=== PATIENT | female | born 1935 | race Caucasian/White ===

== ENCOUNTER 2016-12-20 18:44 | Inpatient (IN) | payer MEDICARE, MEDICAID ==
[~2016-12-20] VITALS: Ht 165.1 cm; Wt 81.6 kg
[~2016-12-20 18:44] MED LIST: CALCIUM + VITA1 EAC1 PO; CATAPRES0.1 MG ORAL; COUMADIN3 MG ORAL; CRANBERRY500 M4 PO; LISINOPRIL10 MG ORAL; MULTIVITAMINS1 EAC8 ORAL; NORVASC2.5 MG ORAL; SENNA8.6 M2 PO; TYLENOL650 MG/20. ORAL; ZANTAC150 MG ORAL
[2016-12-20] MEDS ORDERED: Cefepime 1gm vial ONE (19:45)
[2016-12-20] MEDS ORDERED: Cefepime HCl 1 GM in NS 55 ML IV SCH (19:45)
[2016-12-20] MEDS ORDERED: Vancomycin 1 GM in NS 275 ML IV ONE (19:45)
[2016-12-20] MEDS ORDERED: Vancomycin 1gm inj IVPB ONE (20:06)
[2016-12-20 20:34] LABS: TROPONIN I < 0.30 ng/mL (<=0.30)
[2016-12-20 20:37] LABS: ALANINE AMINOTRANSFERASE 18 U/L (3-33); ALBUMIN/GLOBULIN RATIO 0.9 (1.0-2.7); ANION GAP 17 (5-15); ASPARTATE AMINO TRANSFERASE 18 U/L (5-40); CALCIUM 9.4 mg/dL (8.6-10.2); CARBON DIOXIDE 24 mEQ/L (20-30); CHLORIDE 97 mEQ/L (98-107); CREATININE 0.8 mg/dL (0.5-0.9); HEMOLYSIS 6; POTASSIUM 3.7 mEQ/L (3.4-4.9); SODIUM 138 mEQ/L (135-145); TOTAL PROTEIN 6.5 g/dL (6.6-8.7)
[2016-12-20 20:41] LABS: REFLEX LACTIC ACID YES OR NO YES
[2016-12-20 20:50] LABS: BASOPHILS % (AUTO) 1.4 % (0.0-2.0); EOSINOPHILS % (AUTO) 1.6 % (0.0-3.0); LYMPHOCYTES % (AUTO) 22.3 % (20.0-45.0); MEAN CORPUSCULAR VOLUME 87 FL (80-99); MEAN PLATELET VOLUME 6.1 FL (6.5-10.1); MONOCYTES % (AUTO) 10.3 % (1.0-10.0); NEUTROPHILS % (AUTO) 64.4 % (45.0-75.0); PLATELET COUNT 273 K/UL (150-450); RED BLOOD COUNT 4.32 M/UL (4.20-5.40); WHITE BLOOD COUNT 11.6 K/UL (4.8-10.8)
[2016-12-20 20:59] LABS: APPEARANCE,URINE CLEAR; KETONES,URINE NEGATIVE (NEGATIVE); LEUKOCYTE ESTERASE ,URINE NEGATIVE (NEGATIVE); NITRITE,URINE NEGATIVE (NEGATIVE); PH,URINE 7 (4.5-8.0); PROTEIN,URINE 1+ (NEGATIVE); UROBILINOGEN,URINE NORMAL MG/DL (0.0-1.0)
[2016-12-20 21:16] LABS: BACTERIA,URINE FEW /HPF; SQUAMOUS EPITHELIAL CELL,UR FEW /LPF (NONE/OCC); WBC,URINE 0-2 /HPF (0 - 2)
[2016-12-20 21:57] VITALS: BP 120/77
[2016-12-20] MEDS ORDERED: Mylanta II UD 30ml ORAL PRN (22:15)
[2016-12-20] MEDS ORDERED: Miralax 17gm pkt ORAL PRN (22:15)
[2016-12-20] MEDS ORDERED: Promethazine/Codeine 5ml UD ORAL PRN (22:15)
[2016-12-20] MEDS ORDERED: Nitroglycerin Subl 0.4mg tab (Bottle Of 25) SL PRN (22:15)
[2016-12-20] MEDS ORDERED: DuoNeb 0.5-3(2.5)mg/3ml neb HHN PRN (22:15)
--- NOTE | 2016-12-20 23:34 | Emergency Room Report ---
History of Present Illness General Chief Complaint: Fever Source: Medical Record, EMS, PMD Present Illness HPI Patient is brought in by EMS for her fever. She presents from a half-way facility with recently being diagnosed with pneumonia and has been on antibiotics and today developed a fever of 102. The patient is nonverbal at baseline and unable to give a history. She sent him by the half-way facility and her primary care physician. There is no other history available. Allergies: Coded Allergies: No Known Allergies (Verified , 03/14/07) Uncoded Allergies: POLLEN (Allergy, Unknown, 11/03/11) Patient History Past Medical History: see triage record, HTN, GERD, CVA/TIA Social History: Denies: alcohol use, drug use, smoking Now: No Reviewed Nursing Documentation: PMH: Agreed, PSxH: Agreed Nursing Documentation-PMH Past Medical History: No History, Except For Hx Hypertension: Yes Hx Cancer: No Hx Gastrointestinal Problems: Yes - GERD Hx Neurological Problems: Yes - lack of coordination, Arthritis Hx Cerebrovascular Accident: Yes - CVA 2006 Review of Systems All Other Systems: limited Physical Exam Vital Signs Date Time Temp Pulse Resp B/P Pulse Ox O2 Delivery O2 Flow Rate FiO2 12/20/16 19:02 99.1 89 16 131/94 99 Nasal Cannula 2.0 Sp02 EP Interpretation: reviewed, normal General Appearance: no apparent distress, alert, GCS 15, non-toxic Head: normocephalic, atraumatic Eyes: bilateral eye PERRL, bilateral eye normal inspection ENT: no angioedema Neck: full range of motion, supple/symm/no masses Respiratory: chest non-tender, no respiratory distress, no retraction, no accessory muscle use, rales Cardiovascular #1: regular rate, rhythm Gastrointestinal: normal bowel sounds, soft, no guarding, no rebound Rectal: deferred Musculoskeletal: non-tender, swelling - BLE edema Neurologic: alert, sensory intact, other - AT baseline Skin: warm/dry, well hydrated, other - See RN skin exam Medical Decision Making Diagnostic Impression: Primary Impression: Sepsis Additional Impressions: Fever Pneumonia ER Course Patient presents with fever, lactic acidosis and a chest x-ray with pneumonia. This patient could also be bacteremic him a prescription here for sepsis. The patient was given broad-spectrum antibiotics and IV fluids. The blood pressure stayed stable in the patient was admitted for further evaluation and treatment. Labs Test 12/20/16 19:45 12/20/16 20:44 12/20/16 22:00 White Blood Count 11.6 K/UL (4.8-10.8) Red Blood Count 4.32 M/UL (4.20-5.40) Hemoglobin 11.7 G/DL (12.0-16.0) Hematocrit 37.6 % (37.0-47.0) Mean Corpuscular Volume 87 FL (80-99) Mean Corpuscular Hemoglobin 27.0 PG (27.0-31.0) Mean Corpuscular Hemoglobin Concent 31.0 G/DL (32.0-36.0) Red Cell Distribution Width 15.0 % (11.6-14.8) Platelet Count 273 K/UL (150-450) Mean Platelet Volume 6.1 FL (6.5-10.1) Neutrophils (%) (Auto) 64.4 % (45.0-75.0) Lymphocytes (%) (Auto) 22.3 % (20.0-45.0) Monocytes (%) (Auto) 10.3 % (1.0-10.0) Eosinophils (%) (Auto) 1.6 % (0.0-3.0) Basophils (%) (Auto) 1.4 % (0.0-2.0) Sodium Level 138 mEQ/L (135-145) Potassium Level 3.7 mEQ/L (3.4-4.9) Chloride Level 97 mEQ/L (98-107) Carbon Dioxide Level 24 mEQ/L (20-30) Anion Gap 17 (5-15) Blood Urea Nitrogen 13 mg/dL (7-23) Creatinine 0.8 mg/dL (0.5-0.9) Estimat Glomerular Filtration Rate mL/min (>60) Glucose Level 185 mg/dL (74-106) Lactic Acid Level 3.00 mmol/L (0.66-2.22) 3.00 mmol/L (0.66-2.22) Calcium Level 9.4 mg/dL (8.6-10.2) Total Bilirubin < 0.2 mg/dL (0.0-1.2) Aspartate Amino Transf (AST/SGOT) 18 U/L (5-40) Alanine Aminotransferase (ALT/SGPT) 18 U/L (3-33) Alkaline Phosphatase 84 U/L (35-104) Total Creatine Kinase 47 U/L (26-140) Creatine Kinase MB 2.0 ng/mL (< 3.8) Creatine Kinase MB Relative Index 4.2 Troponin I < 0.30 ng/mL (<=0.30) Total Protein 6.5 g/dL (6.6-8.7) Albumin 3.2 g/dL (3.5-5.2) Globulin 3.3 g/dL Albumin/Globulin Ratio 0.9 (1.0-2.7) Urine Color Pale yellow Urine Appearance Clear Urine pH 7 (4.5-8.0) Urine Specific [place] 1.010 (1.005-1.035) Urine Protein 1+ (NEGATIVE) Urine Glucose (UA) Negative (NEGATIVE) Urine Ketones Negative (NEGATIVE) Urine Occult Blood 1+ (NEGATIVE) Urine Nitrite Negative (NEGATIVE) Urine Bilirubin Negative (NEGATIVE) Urine Urobilinogen Normal MG/DL (0.0-1.0) Urine Leukocyte Esterase Negative (NEGATIVE) Urine RBC 2-4 /HPF (0 - 2) Urine WBC 0-2 /HPF (0 - 2) Urine Squamous Epithelial Cells Few /LPF (NONE/OCC) Urine Bacteria Few /HPF (NONE) EKG Diagnostic Results Rate: normal Rhythm: NSR ST Segments: no acute changes Rhythm Strip Diag. Results EP Interpretation: yes Rate: 80's Rhythm: NSR, no PVC's, no ectopy Chest X-Ray Diagnostic Results EP Interpretation: Yes Findings: no effusion, no pneumothorax, other Number of Views: 1 Other Impression Right middle lobe opacity. Last Vital Signs Date Time Temp Pulse Resp B/P Pulse Ox O2 Delivery O2 Flow Rate FiO2 12/20/16 21:57 99.4 73 19 120/77 100 Nasal Cannula 12/20/16 19:02 2.0 Disposition: ADMITTED INPATIENT Condition: Serious Referrals: Ashish Jeter MD (PCP) ROSANA PALMER D.O. Dec 20, 2016 23:34
[2016-12-20 23:41] VITALS: BP 149/57
[2016-12-21] VITALS (7 sets, daily range): BP systolic 114–160; BP diastolic 54–92
[2016-12-21 05:29] LABS: BASOPHILS % (AUTO) 0.9 % (0.0-2.0); LYMPHOCYTES % (AUTO) 24.6 % (20.0-45.0); MEAN CORPUSCULAR HEMOGLOBIN 27.4 PG (27.0-31.0); MEAN CORPUSCULAR HGB CONC 31.9 G/DL (32.0-36.0); MEAN CORPUSCULAR VOLUME 86 FL (80-99); MEAN PLATELET VOLUME 6.4 FL (6.5-10.1); MONOCYTES % (AUTO) 11.2 % (1.0-10.0); NEUTROPHILS % (AUTO) 60.4 % (45.0-75.0); PLATELET COUNT 282 K/UL (150-450); RED CELL DISTRIBUTION WIDTH 14.7 % (11.6-14.8); WHITE BLOOD COUNT 8.5 K/UL (4.8-10.8)
[2016-12-21 05:46] LABS: ANION GAP 14 (5-15); CALCIUM 8.8 mg/dL (8.6-10.2); CARBON DIOXIDE 26 mEQ/L (20-30); CHLORIDE 101 mEQ/L (98-107); CREATININE 0.7 mg/dL (0.5-0.9); HEMOLYSIS 3; PHOSPHORUS 2.2 mg/dL (2.5-4.8); POTASSIUM 3.6 mEQ/L (3.4-4.9); SODIUM 141 mEQ/L (135-145)
[2016-12-21 07:33] LABS: INR 4.6 (0.9-1.1); PROTHROMBIN TIME 49.6 SEC (9.30-11.50)
[2016-12-21] MEDS ORDERED: Warfarin Sodium 3mg ORAL SCH (09:00)
[2016-12-21] MEDS ORDERED: Heparin 5000 units/ml inj SUBQ SCH ×2 (09:00→21:00)
[2016-12-21] MEDS: Lisinopril 2.5mg tab ORAL SCH ×2 (09:20→18:56)
--- NOTE | 2016-12-21 10:46 | Infectious Diseases Prog Note ---
Assessment/Plan Problems: (1) Pneumonia Assessment & Plan: with right middle lobe opacity , suspect aspiration, will start vancomycin, continue cefepime and add flagyl , send sputum culture (2) Sepsis Assessment & Plan: due to the above, start vancomycin and cefepime and send blood culture (3) Fever Assessment & Plan: due to the above, continue antibiotics , use tylenol as needed (4) At high risk for aspiration Assessment & Plan: keep NPO, recommend speech eval. (5) UTI (urinary tract infection) Assessment & Plan: already on cefepime, send culture Subjective Allergies: Coded Allergies: No Known Allergies (Verified , 03/14/07) Uncoded Allergies: POLLEN (Allergy, Unknown, 11/03/11) Objective Vital Signs Last 24 Hour Vital Signs Date Time Temp Pulse Resp B/P Pulse Ox O2 Delivery O2 Flow Rate FiO2 12/21/16 09:20 142/84 12/21/16 09:20 60 142/84 12/21/16 08:24 97.5 69 18 140/58 95 Nasal Cannula 3.0 12/21/16 07:17 63 16 141/51 100 Nasal Cannula 2.0 12/21/16 05:00 98.2 62 17 114/83 100 Nasal Cannula 2.0 12/21/16 03:26 99.4 72 21 117/92 100 Nasal Cannula 2.0 12/21/16 01:05 99.4 66 15 160/70 100 Nasal Cannula 2.0 12/20/16 23:41 99.4 74 21 149/57 100 Nasal Cannula 2.0 12/20/16 21:57 99.4 73 19 120/77 100 Nasal Cannula 12/20/16 19:02 99.1 89 16 131/94 99 Nasal Cannula 2.0 Height (Feet): 5 Height (Inches): 5.00 Weight (Pounds): 180 Laboratory Tests Test 12/20/16 19:45 12/20/16 20:44 12/20/16 22:00 12/21/16 05:00 White Blood Count 11.6 K/UL (4.8-10.8) H 8.5 K/UL (4.8-10.8) Red Blood Count 4.32 M/UL (4.20-5.40) 4.20 M/UL (4.20-5.40) Hemoglobin 11.7 G/DL (12.0-16.0) L 11.5 G/DL (12.0-16.0) L Hematocrit 37.6 % (37.0-47.0) 36.2 % (37.0-47.0) L Mean Corpuscular Volume 87 FL (80-99) 86 FL (80-99) Mean Corpuscular Hemoglobin 27.0 PG (27.0-31.0) 27.4 PG (27.0-31.0) Mean Corpuscular Hemoglobin Concent 31.0 G/DL (32.0-36.0) L 31.9 G/DL (32.0-36.0) L Red Cell Distribution Width 15.0 % (11.6-14.8) H 14.7 % (11.6-14.8) Platelet Count 273 K/UL (150-450) 282 K/UL (150-450) Mean Platelet Volume 6.1 FL (6.5-10.1) L 6.4 FL (6.5-10.1) L Neutrophils (%) (Auto) 64.4 % (45.0-75.0) 60.4 % (45.0-75.0) Lymphocytes (%) (Auto) 22.3 % (20.0-45.0) 24.6 % (20.0-45.0) Monocytes (%) (Auto) 10.3 % (1.0-10.0) H 11.2 % (1.0-10.0) H Eosinophils (%) (Auto) 1.6 % (0.0-3.0) 3.0 % (0.0-3.0) Basophils (%) (Auto) 1.4 % (0.0-2.0) 0.9 % (0.0-2.0) Sodium Level 138 mEQ/L (135-145) 141 mEQ/L (135-145) Potassium Level 3.7 mEQ/L (3.4-4.9) 3.6 mEQ/L (3.4-4.9) Chloride Level 97 mEQ/L (98-107) L 101 mEQ/L (98-107) Carbon Dioxide Level 24 mEQ/L (20-30) 26 mEQ/L (20-30) Anion Gap 17 (5-15) H 14 (5-15) Blood Urea Nitrogen 13 mg/dL (7-23) 10 mg/dL (7-23) Creatinine 0.8 mg/dL (0.5-0.9) 0.7 mg/dL (0.5-0.9) Estimat Glomerular Filtration Rate mL/min (>60) mL/min (>60) Glucose Level 185 mg/dL (74-106) H 104 mg/dL (74-106) Lactic Acid Level 3.00 mmol/L (0.66-2.22) H 3.00 mmol/L (0.66-2.22) H Calcium Level 9.4 mg/dL (8.6-10.2) 8.8 mg/dL (8.6-10.2) Total Bilirubin < 0.2 mg/dL (0.0-1.2) Aspartate Amino Transf (AST/SGOT) 18 U/L (5-40) Alanine Aminotransferase (ALT/SGPT) 18 U/L (3-33) Alkaline Phosphatase 84 U/L (35-104) Total Creatine Kinase 47 U/L (26-140) Creatine Kinase MB 2.0 ng/mL (< 3.8) Creatine Kinase MB Relative Index 4.2 Troponin I < 0.30 ng/mL (<=0.30) Total Protein 6.5 g/dL (6.6-8.7) L Albumin 3.2 g/dL (3.5-5.2) L 3.1 g/dL (3.5-5.2) L Globulin 3.3 g/dL Albumin/Globulin Ratio 0.9 (1.0-2.7) L Urine Color Pale yellow Urine Appearance Clear Urine pH 7 (4.5-8.0) Urine Specific [place] 1.010 (1.005-1.035) Urine Protein 1+ (NEGATIVE) H Urine Glucose (UA) Negative (NEGATIVE) Urine Ketones Negative (NEGATIVE) Urine Occult Blood 1+ (NEGATIVE) H Urine Nitrite Negative (NEGATIVE) Urine Bilirubin Negative (NEGATIVE) Urine Urobilinogen Normal MG/DL (0.0-1.0) Urine Leukocyte Esterase Negative (NEGATIVE) Urine RBC 2-4 /HPF (0 - 2) H Urine WBC 0-2 /HPF (0 - 2) Urine Squamous Epithelial Cells Few /LPF (NONE/OCC) Urine Bacteria Few /HPF (NONE) Phosphorus Level 2.2 mg/dL (2.5-4.8) L Test 12/21/16 06:05 Prothrombin Time 49.6 SEC (9.30-11.50) H Prothromb Time International Ratio 4.6 (0.9-1.1) H Current Medications Medications (Trade) Dose Ordered Sig/Woodrow Route PRN Reason Start Time Stop Time Status Last Admin Dose Admin Acetaminophen (Tylenol) 650 mg Q4H PRN ORAL fever 12/20/16 22:15 01/19/17 22:14 Al Hydroxide/Mg Hydroxide (Mylanta II) 30 ml Q6H PRN ORAL dyspepsia 12/20/16 22:15 01/19/17 22:14 Albuterol/ Ipratropium 3 ml 3 ml Q4H PRN HHN Shortness of Breath 12/20/16 22:15 12/25/16 22:14 Amlodipine Besylate (Norvasc) 2.5 mg DAILY ORAL 12/21/16 09:00 01/20/17 08:59 12/21/16 09:20 Cefepime HCl/ Dextrose (Maxipime/D5W) 55 ml @ 110 mls/hr Q24H IV 12/21/16 20:00 12/28/16 19:59 Clonidine HCl (Catapres) 0.1 mg Q8H PRN ORAL For High Blood Pressure 12/20/16 22:15 01/19/17 22:14 Heparin Sodium (Porcine) (Heparin 5000 units/ml) 5,000 units EVERY 12 HOURS SUBQ 12/21/16 09:00 01/20/17 08:59 12/21/16 09:22 Lisinopril (Zestril) 5 mg BID ORAL 12/21/16 09:00 01/20/17 08:59 12/21/16 09:20 Nitroglycerin (Ntg) 0.4 mg Q5M PRN SL Prn Chest Pain 12/20/16 22:15 01/19/17 22:14 Ondansetron HCl (Zofran) 4 mg Q6H PRN IVP Nausea & Vomiting 12/20/16 22:15 01/19/17 22:14 Polyethylene Glycol (Miralax) 17 gm DAILYPRN PRN ORAL Constipation 12/20/16 22:15 01/19/17 22:14 Promethazine HCl/ Codeine (Phenergan with Codeine) 5 ml Q4H PRN ORAL For Cough 12/20/16 22:15 01/19/17 22:14 Ranitidine HCl (Zantac) 150 mg DAILY ORAL 12/21/16 09:00 01/20/17 08:59 12/21/16 09:12 Sennosides (Senokot) 8.6 mg BEDTIME ORAL 12/21/16 21:00 01/20/17 20:59 Temazepam (Restoril) 15 mg HSPRN PRN ORAL Insomnia 12/20/16 22:15 12/27/16 22:14 Vancomycin HCl (Vanco rx to dose) 1 ea DAILY PRN MISC . 12/21/16 10:45 01/20/17 10:44 Vancomycin HCl 1 gm/Dextrose 275 ml @ 183.708 mls/hr Q12HR IVPB 12/21/16 21:00 12/26/16 20:59 UNV Vancomycin HCl/ Dextrose (Vancomycin/D5W) 275 ml @ 183.333 mls/hr Q24H IVPB 12/21/16 16:00 12/26/16 15:59 Warfarin Sodium 1 ea 1 ea DAILY PRN MISC . 12/21/16 07:45 01/20/17 07:44 Virgilio Pierson M.D. Dec 21, 2016 10:46
--- NOTE | 2016-12-21 13:54 | Diagnostic Imaging Report ---
Indication: Cough Comparison: 09/19/16 A single view chest radiograph was obtained. Findings: Bones are osteopenic. Aorta is calcified and ectatic. Heart size is normal. Lungs are essentially clear. The right shoulder is dislocated. This was present previously as well and apparently chronic. Impression: No acute disease
--- NOTE | 2016-12-21 14:49 | Consultation ---
History of Present Illness General Date patient seen: Dec 21, 2016 Chief Complaint: Fever Referring physician: dr Jeter Reason for Consultation: dyspnea Present Illness HPI 81 year old female with hx of CVA, Dementia, custodial resident, brought in by EMS for her fever. She was diagnosed to have pneumonia and has been on antibiotics and then developed a fever of 102. The patient is nonverbal at baseline and unable to give a history. There is no other history available. Pt is not verbal and all history was taken from the chart. Allergies: Coded Allergies: No Known Allergies (Verified , 03/14/07) Uncoded Allergies: POLLEN (Allergy, Unknown, 11/03/11) Medication History Scheduled Amlodipine Besylate (Norvasc), 2.5 MG ORAL DAILY, (Reported) Calcium Carbonate/Vitamin D3 (Calcium + Vitamin D Tablet), 1 EACH PO BID, ( Reported) Cranberry Extract (Cranberry), 425 MG PO BID, (Reported) Lisinopril* (Lisinopril*), 5 MG ORAL BID, (Reported) Multivitamin With Minerals (Multivitamins With Minerals*), 1 TAB ORAL DAILY, ( Reported) Ranitidine Hcl* (Zantac*), 150 MG ORAL DAILY, (Reported) Sennosides (Senna), 8.6 MG PO BEDTIME, (Reported) Warfarin Sod* (Coumadin*), 3.5 MG ORAL DAILY, (Reported) Scheduled PRN Acetaminophen (Acetaminophen), 650 MG ORAL Q6H PRN for Prn Headache/Temp > 101, (Reported) Clonidine Hcl* (Catapres*), 0.1 MG ORAL EVERY 8 HOURS PRN for For High Blood Pressure, (Reported) Patient History Healthcare decision maker Resuscitation status Full Code Advanced Directive on File Past Medical/Surgical History Past Medical/Surgical History: (1) Dementia (2) At high risk for aspiration (3) Cerebrovascular accident (CVA) Review of Systems All Other Systems: negative except mentioned in HPI Physical Exam General Appearance: WD/WN Lines, tubes and drains: peripheral, PICC HEENT: normocephalic, atraumatic Neck: non-tender, normal alignment Respiratory/Chest: chest wall non-tender, normal breath sounds Breasts: no masses Cardiovascular/Chest: normal peripheral pulses Abdomen: normal bowel sounds Last 24 Hour Vital Signs Date Time Temp Pulse Resp B/P Pulse Ox O2 Delivery O2 Flow Rate FiO2 12/21/16 11:46 97.3 82 18 120/54 98 Nasal Cannula 2.0 12/21/16 09:20 142/84 12/21/16 09:20 60 142/84 12/21/16 08:24 97.5 69 18 140/58 95 Nasal Cannula 3.0 12/21/16 07:17 63 16 141/51 100 Nasal Cannula 2.0 12/21/16 05:00 98.2 62 17 114/83 100 Nasal Cannula 2.0 12/21/16 03:26 99.4 72 21 117/92 100 Nasal Cannula 2.0 12/21/16 01:05 99.4 66 15 160/70 100 Nasal Cannula 2.0 12/20/16 23:41 99.4 74 21 149/57 100 Nasal Cannula 2.0 12/20/16 21:57 99.4 73 19 120/77 100 Nasal Cannula 12/20/16 19:02 99.1 89 16 131/94 99 Nasal Cannula 2.0 Intake and Output 12/20/16 12/21/16 19:00 07:00 Intake Total 2638 ml Output Total 850 ml Balance 1788 ml Intake IV Total 2638 ml Output Urine Total 850 ml # Voids 11 Laboratory Tests Test 12/20/16 19:45 12/20/16 20:44 12/20/16 22:00 12/21/16 05:00 White Blood Count 11.6 K/UL (4.8-10.8) H 8.5 K/UL (4.8-10.8) Red Blood Count 4.32 M/UL (4.20-5.40) 4.20 M/UL (4.20-5.40) Hemoglobin 11.7 G/DL (12.0-16.0) L 11.5 G/DL (12.0-16.0) L Hematocrit 37.6 % (37.0-47.0) 36.2 % (37.0-47.0) L Mean Corpuscular Volume 87 FL (80-99) 86 FL (80-99) Mean Corpuscular Hemoglobin 27.0 PG (27.0-31.0) 27.4 PG (27.0-31.0) Mean Corpuscular Hemoglobin Concent 31.0 G/DL (32.0-36.0) L 31.9 G/DL (32.0-36.0) L Red Cell Distribution Width 15.0 % (11.6-14.8) H 14.7 % (11.6-14.8) Platelet Count 273 K/UL (150-450) 282 K/UL (150-450) Mean Platelet Volume 6.1 FL (6.5-10.1) L 6.4 FL (6.5-10.1) L Neutrophils (%) (Auto) 64.4 % (45.0-75.0) 60.4 % (45.0-75.0) Lymphocytes (%) (Auto) 22.3 % (20.0-45.0) 24.6 % (20.0-45.0) Monocytes (%) (Auto) 10.3 % (1.0-10.0) H 11.2 % (1.0-10.0) H Eosinophils (%) (Auto) 1.6 % (0.0-3.0) 3.0 % (0.0-3.0) Basophils (%) (Auto) 1.4 % (0.0-2.0) 0.9 % (0.0-2.0) Sodium Level 138 mEQ/L (135-145) 141 mEQ/L (135-145) Potassium Level 3.7 mEQ/L (3.4-4.9) 3.6 mEQ/L (3.4-4.9) Chloride Level 97 mEQ/L (98-107) L 101 mEQ/L (98-107) Carbon Dioxide Level 24 mEQ/L (20-30) 26 mEQ/L (20-30) Anion Gap 17 (5-15) H 14 (5-15) Blood Urea Nitrogen 13 mg/dL (7-23) 10 mg/dL (7-23) Creatinine 0.8 mg/dL (0.5-0.9) 0.7 mg/dL (0.5-0.9) Estimat Glomerular Filtration Rate mL/min (>60) mL/min (>60) Glucose Level 185 mg/dL (74-106) H 104 mg/dL (74-106) Lactic Acid Level 3.00 mmol/L (0.66-2.22) H 3.00 mmol/L (0.66-2.22) H Calcium Level 9.4 mg/dL (8.6-10.2) 8.8 mg/dL (8.6-10.2) Total Bilirubin < 0.2 mg/dL (0.0-1.2) Aspartate Amino Transf (AST/SGOT) 18 U/L (5-40) Alanine Aminotransferase (ALT/SGPT) 18 U/L (3-33) Alkaline Phosphatase 84 U/L (35-104) Total Creatine Kinase 47 U/L (26-140) Creatine Kinase MB 2.0 ng/mL (< 3.8) Creatine Kinase MB Relative Index 4.2 Troponin I < 0.30 ng/mL (<=0.30) Total Protein 6.5 g/dL (6.6-8.7) L Albumin 3.2 g/dL (3.5-5.2) L 3.1 g/dL (3.5-5.2) L Globulin 3.3 g/dL Albumin/Globulin Ratio 0.9 (1.0-2.7) L Urine Color Pale yellow Urine Appearance Clear Urine pH 7 (4.5-8.0) Urine Specific [place] 1.010 (1.005-1.035) Urine Protein 1+ (NEGATIVE) H Urine Glucose (UA) Negative (NEGATIVE) Urine Ketones Negative (NEGATIVE) Urine Occult Blood 1+ (NEGATIVE) H Urine Nitrite Negative (NEGATIVE) Urine Bilirubin Negative (NEGATIVE) Urine Urobilinogen Normal MG/DL (0.0-1.0) Urine Leukocyte Esterase Negative (NEGATIVE) Urine RBC 2-4 /HPF (0 - 2) H Urine WBC 0-2 /HPF (0 - 2) Urine Squamous Epithelial Cells Few /LPF (NONE/OCC) Urine Bacteria Few /HPF (NONE) Phosphorus Level 2.2 mg/dL (2.5-4.8) L Test 12/21/16 06:05 Prothrombin Time 49.6 SEC (9.30-11.50) H Prothromb Time International Ratio 4.6 (0.9-1.1) H Height (Feet): 5 Height (Inches): 5.00 Weight (Pounds): 180 Medications Current Medications Medications (Trade) Dose Ordered Sig/[place]row Route PRN Reason Start Time Stop Time Status Last Admin Dose Admin Acetaminophen (Tylenol) 650 mg Q4H PRN ORAL fever 3/9/17 22:15 01/19/17 22:14 Al Hydroxide/Mg Hydroxide (Mylanta II) 30 ml Q6H PRN ORAL dyspepsia 12/20/16 22:15 01/19/17 22:14 Albuterol/ Ipratropium 3 ml 3 ml Q4H PRN HHN Shortness of Breath 12/20/16 22:15 12/25/16 22:14 Amlodipine Besylate (Norvasc) 2.5 mg DAILY ORAL 12/21/16 09:00 01/20/17 08:59 12/21/16 09:20 Cefepime HCl/ Dextrose (Maxipime/D5W) 55 ml @ 110 mls/hr Q24H IV 12/21/16 20:00 12/28/16 19:59 Clonidine HCl (Catapres) 0.1 mg Q8H PRN ORAL For High Blood Pressure 12/20/16 22:15 01/19/17 22:14 Heparin Sodium (Porcine) (Heparin 5000 units/ml) 5,000 units EVERY 12 HOURS SUBQ 12/21/16 09:00 01/20/17 08:59 12/21/16 09:22 Lisinopril (Zestril) 5 mg BID ORAL 12/21/16 09:00 01/20/17 08:59 12/21/16 09:20 Nitroglycerin (Ntg) 0.4 mg Q5M PRN SL Prn Chest Pain 12/20/16 22:15 01/19/17 22:14 Ondansetron HCl (Zofran) 4 mg Q6H PRN IVP Nausea & Vomiting 12/20/16 22:15 01/19/17 22:14 Polyethylene Glycol (Miralax) 17 gm DAILYPRN PRN ORAL Constipation 12/20/16 22:15 01/19/17 22:14 Promethazine HCl/ Codeine (Phenergan with Codeine) 5 ml Q4H PRN ORAL For Cough 12/20/16 22:15 01/19/17 22:14 Ranitidine HCl (Zantac) 150 mg DAILY ORAL 12/21/16 09:00 01/20/17 08:59 12/21/16 09:12 Sennosides (Senokot) 8.6 mg BEDTIME ORAL 12/21/16 21:00 01/20/17 20:59 Temazepam (Restoril) 15 mg HSPRN PRN ORAL Insomnia 12/20/16 22:15 12/27/16 22:14 Vancomycin HCl (Vanco rx to dose) 1 ea DAILY PRN MISC . 12/21/16 10:45 01/20/17 10:44 Vancomycin HCl/ Dextrose (Vancomycin/D5W) 275 ml @ 183.333 mls/hr Q24H IVPB 12/21/16 16:00 12/26/16 15:59 Warfarin Sodium 1 ea 1 ea DAILY PRN MISC . 12/21/16 07:45 01/20/17 07:44 Assessment/Plan Problem List: (1) Pneumonia ICD Codes: J18.9 - Pneumonia, unspecified organism SNOMED: 687020341 (2) At high risk for aspiration ICD Codes: Z91.89 - Other specified personal risk factors, not elsewhere classified SNOMED: 190290761 (3) Dyspnea ICD Codes: R06.00 - Dyspnea, unspecified SNOMED: 384277675 (4) Fever ICD Codes: R50.9 - Fever, unspecified SNOMED: 999132071 (5) Sepsis ICD Codes: A41.9 - Sepsis, unspecified organism SNOMED: 51838311 (6) Dementia ICD Codes: F03.90 - Unspecified dementia without behavioral disturbance SNOMED: 61713093 (7) Cerebrovascular accident (CVA) ICD Codes: I63.9 - Cerebral infarction, unspecified SNOMED: 456567927 Assessment/Plan IV antibiotics respiratory treatment swallow study f/u electrolytes check sputum, blood cultures dvt prophylaxis ALEXANDER TOLBERT Dec 21, 2016 14:49
[2016-12-21] MEDS ORDERED: Vancomycin 1250mg/D5W 275ml IVPB SCH ×2 (16:00)
--- NOTE | 2016-12-21 17:29 | Consultation ---
DATE OF CONSULTATION: INFECTIOUS DISEASE CONSULTATION REQUESTING PHYSICIAN: Ashish Jeter M.D. REASON FOR CONSULTATION: Sepsis, pneumonia, and fever. Recommendation for antibiotics therapy. HISTORY OF PRESENT ILLNESS: The patient is an 81-year-old female, who was brought in from intermediate facility for fever of 102 degrees. The patient was recently diagnosed with pneumonia and she has been on antibiotics therapy and today she was found to be febrile and was brought into the emergency room for further evaluation. Chest x-ray showed right middle lobe consolidation, suspicious for aspiration pneumonia. Temperature was 99.1 degrees. The patient received vancomycin and cefepime and I was asked by the primary provider for antibiotics recommendation and further management. A of note, the patient is demented, nonverbal, cannot provide history and history was mainly obtained from the medical record. PAST MEDICAL HISTORY: Significant for hypertension, GERD, CVA, TIA, and arthritis. PAST SURGICAL HISTORY: Negative. MEDICATIONS: She received vancomycin and cefepime in the emergency room. For the rest of her medications, please refer to MAR. ALLERGIES: She has no known drug allergy, mainly pollen. SOCIAL HISTORY: The patient lives at the intermediate facility. She denied recent drugs, tobacco or alcohol. FAMILY HISTORY: Unable to obtain. PHYSICAL EXAMINATION: GENERAL: This is an elderly female, laying in bed, demented, nonverbal and does not follow commands, not in acute distress. VITAL SIGNS: Temperature 99.4 degrees, pulse 66, respirations 16, blood pressure 160/70, and pulse oximetry 100% on two liters nasal cannula. HEENT: Normocephalic and atraumatic. Pupils both reactive to light equally. Moist oral mucosa. No exudate. NECK: Supple. No lymphadenopathy. CARDIOVASCULAR: Regular rate and rhythm. No murmur. LUNGS: She had crackles. Diminished breathing sounds mainly on the right side. ABDOMEN: Soft, nontender, and nondistended. Positive bowel sounds. No hepatosplenomegaly. No ascites. EXTREMITIES: No edema. No cyanosis. LABORATORY AND DIAGNOSTIC DATA: Laboratory showed white count of 11.6, hemoglobin of 11.7, and platelet count of 273,000. BUN of 13 and creatinine of 0.8. AST of 18 and ALT of 18. Imaging showed right middle lobe consolidation, suspicious for pneumonia. ASSESSMENT AND PLAN: 1. Pneumonia with right middle lobe opacity, rule out aspiration. We will start vancomycin, cefepime and Flagyl. Send sputum for culture. Keep NPO for now. The patient is high risk for aspiration. 2. Sepsis due to the above. We will start vancomycin and cefepime and send blood culture. Tailor antibiotics as per culture results. 3. Fever due to the above . 4. High risk for aspiration. Keep NPO. Recommend speech evaluation. 5. Urinary tract infection, already on cefepime. We will send urine culture. Virgilio Pierson M.D. DR: MALIK JOB#: [id number] CC: JESSICA
[2016-12-21] MEDS ORDERED: Nitroglycerin Subl 0.4mg tab (Bottle Of 25) SL PRN (19:15)
[2016-12-21] MEDS ORDERED: Cefepime HCl 1 GM in D5W 55 ML IV SCH (20:00)
[2016-12-21] MEDS ORDERED: Promethazine/Codeine 5ml UD ORAL PRN (21:00)
[2016-12-21] MEDS ORDERED: Mylanta II UD 30ml ORAL PRN (21:00)
[2016-12-21] MEDS ORDERED: DuoNeb 0.5-3(2.5)mg/3ml neb HHN PRN (21:00)
[2016-12-21] MEDS ORDERED: Miralax 17gm pkt ORAL PRN (21:00)
[2016-12-21] MEDS ORDERED: Vancomycin 1 GM in D5W 275 ML IVPB SCH (21:00)
--- NOTE | 2016-12-21 21:39 | Wound Care Consultation ---
Wound Assessment Wound Assessment : Wound Present on Admission: Yes New Wound: No Status Change of Wound: No Wound Location Body Site: perineal area Wound Type: chemical burn Jeanne Test: Does not Jeanne Percent of Wound [place]/Red: 100 Wound Drainage Amount: None Wound Drainage Odor: None/Absent Tissue Surrounding Wound: Erythemic Wound General Appearance: Reddened Wound Comment #1 Perineal chemical burn Recommendation -Keep clean and dry -Turn and reposition -Optimize nutrition -Local wound care as ordered -Assess and f/u accordingly for any changes JODIE FRANCO RN Dec 21, 2016 21:39
[2016-12-21] MEDS: Cefepime HCl 1 GM in D5W 55 ML IV SCH (22:57)
[2016-12-22] VITALS: BP 137/66
[2016-12-22 04:00] VITALS: BP 142/62
[2016-12-22 08:07] VITALS: BP 122/71
[2016-12-22 08:16] LABS: INR 3.5 (0.9-1.1); PROTHROMBIN TIME 36.8 SEC (9.30-11.50)
[2016-12-22] MEDS: Lisinopril 2.5mg tab ORAL SCH ×2 (08:41→18:26)
[2016-12-22] MEDS ORDERED: 1/2NS w/KCl 20mEq 1000ml IV ONE (10:54)
[2016-12-22 12:00] VITALS: BP 148/68
--- NOTE | 2016-12-22 13:29 | Infectious Diseases Prog Note ---
Assessment/Plan Problems: (1) Pneumonia Assessment & Plan: with right middle lobe opacity , suspect aspiration, continue vancomycin, and cefepime with flagyl , send sputum culture (2) Sepsis Assessment & Plan: due to the above, continue vancomycin and cefepime and send blood culture (3) Fever Assessment & Plan: due to the above, continue antibiotics , use tylenol as needed (4) At high risk for aspiration Assessment & Plan: keep NPO, recommend speech eval. (5) UTI (urinary tract infection) Assessment & Plan: already on cefepime, await culture Subjective ROS Limited/Unobtainable: Yes Allergies: Coded Allergies: No Known Allergies (Verified , 03/14/07) Uncoded Allergies: POLLEN (Allergy, Unknown, 11/03/11) Subjective she is demented lying in bed, awake and alert, not in distress Objective Vital Signs Last 24 Hour Vital Signs Date Time Temp Pulse Resp B/P Pulse Ox O2 Delivery O2 Flow Rate FiO2 12/22/16 12:00 97.9 65 18 148/68 95 Nasal Cannula 2.0 12/22/16 08:07 97.0 61 18 122/71 100 Simple Mask 2.0 12/22/16 04:00 96.9 62 20 142/62 98 Room Air 12/22/16 00:00 99.3 69 20 137/66 98 Nasal Cannula 2.0 12/21/16 20:30 97.9 79 19 128/67 97 Nasal Cannula 2.0 12/21/16 18:56 131/66 12/21/16 16:00 97.9 108 19 131/66 Nasal Cannula 2.0 94 Height (Feet): 5 Height (Inches): 5.00 Weight (Pounds): 180 General Appearance: WD/WN, no acute distress HEENT: normocephalic, atraumatic, anicteric Respiratory/Chest: chest wall non-tender, normal breath sounds, no respiratory distress, decreased breath sounds, crackles/rales Cardiovascular: normal peripheral pulses, normal rate, regular rhythm Abdomen: normal bowel sounds, soft, non tender, no organomegaly, non distended Extremities: no cyanosis, no clubbing Skin: no rash, no lesions Microbiology Date/Time Source Procedure Growth Status 12/20/16 22:15 Nasal Nares MRSA Culture - Final NO METHICILLIN RESISTANT STAPH AUREUS... Complete Laboratory Tests Test 12/22/16 05:45 Prothrombin Time 36.8 SEC (9.30-11.50) H Prothromb Time International Ratio 3.5 (0.9-1.1) H Current Medications Medications (Trade) Dose Ordered Sig/Woodrow Route PRN Reason Start Time Stop Time Status Last Admin Dose Admin Acetaminophen (Tylenol) 650 mg Q4H PRN ORAL fever 12/21/16 21:00 01/20/17 20:59 Al Hydroxide/Mg Hydroxide (Mylanta II) 30 ml Q6H PRN ORAL dyspepsia 12/21/16 21:00 01/20/17 20:59 Albuterol/ Ipratropium (DuoNeb 0.5-3(2.5)mg/3ml) 3 ml Q4H PRN HHN Shortness of Breath 12/21/16 21:00 12/26/16 20:59 Amlodipine Besylate (Norvasc) 2.5 mg DAILY ORAL 12/22/16 09:00 01/21/17 08:59 Cefepime HCl 1 gm/ Dextrose 55 ml @ 110 mls/hr Q24H IV 12/21/16 21:00 12/28/16 20:59 12/21/16 22:57 Clonidine HCl (Catapres) 0.1 mg Q8H PRN ORAL For High Blood Pressure 12/21/16 22:15 01/20/17 22:14 Clotrimazole 1 applic 1 applic EVERY 12 HOURS TOPIC 12/22/16 09:00 01/21/17 08:59 12/22/16 09:10 Heparin Sodium (Porcine) (Heparin 5000 units/ml) 5,000 units EVERY 12 HOURS SUBQ 12/21/16 21:00 01/20/17 20:59 UNV Lisinopril (Zestril) 5 mg BID ORAL 12/22/16 09:00 01/21/17 08:59 Nitroglycerin (Ntg) 0.4 mg Q5M PRN SL Prn Chest Pain 12/21/16 19:15 01/20/17 19:14 Ondansetron HCl (Zofran) 4 mg Q6H PRN IVP Nausea & Vomiting 12/21/16 21:00 01/20/17 20:59 Polyethylene Glycol (Miralax) 17 gm DAILYPRN PRN ORAL Constipation 12/21/16 21:00 01/20/17 20:59 Promethazine HCl/ Codeine (Phenergan with Codeine) 5 ml Q4H PRN ORAL For Cough 12/21/16 21:00 01/20/17 20:59 Ranitidine HCl (Zantac) 150 mg DAILY ORAL 12/22/16 09:00 01/21/17 08:59 Sennosides (Senokot) 8.6 mg BEDTIME ORAL 12/21/16 21:00 01/20/17 20:59 Sodium Chloride (0.45% NS 1000ml) 1,000 ml @ 50 mls/hr Q20H IV 12/22/16 09:00 01/21/17 08:59 12/22/16 09:10 Temazepam (Restoril) 15 mg HSPRN PRN ORAL Insomnia 12/21/16 22:15 12/28/16 22:14 Vancomycin HCl (Vanco rx to dose) 1 ea DAILY PRN MISC . 12/22/16 09:00 01/21/17 08:59 Vancomycin HCl/ Dextrose (Vancomycin/D5W) 275 ml @ 183.333 mls/hr Q24H IVPB 12/22/16 16:00 12/27/16 15:59 Warfarin Sodium (Coumadin per pharmacy) 1 ea DAILY PRN MISC . 12/22/16 09:00 01/21/17 08:59 Virgilio Pierson M.D. Dec 22, 2016 13:29
[2016-12-22 16:00] VITALS: BP 140/53
[2016-12-22] MEDS: Vancomycin 1.25 GM in D5W 275 ML IVPB SCH (17:34)
[2016-12-22 20:00] VITALS: BP 139/66
[2016-12-22] MEDS: Cefepime HCl 1 GM in D5W 55 ML IV SCH (21:46)
--- NOTE | 2016-12-22 22:39 | History and Physical Report ---
DATE OF ADMISSION: 12/20/2016 HISTORY OF PRESENT ILLNESS: The patient is a very poor historian with advanced dementia and nonverbal. I cannot obtain any history from the patient. The patient is admitted for fever despite being on antibiotics. The patient had recently been in the hospital for pneumonia that has apparently partially not resolved. The patient is going to be consulted by Pulmonology as well as Infectious Diseases. Unable to obtain further history from the patient. PAST MEDICAL HISTORY: Pneumonia, advanced dementia of Alzheimer's type, history of hypertension, history of GERD and constipation, history of CVA in the past, and history of arrhythmia in the past. MEDICATIONS: Norvasc, calcium carbonate, clonidine p.r.n., lisinopril, multivitamin, Zantac, Senokot, and warfarin. ALLERGIES: To pollen. SOCIAL HISTORY: Unable to obtain. FAMILY HISTORY: Unable to obtain. REVIEW OF SYSTEMS: Unable to obtain. The patient is nonverbal. PHYSICAL EXAMINATION: VITAL SIGNS: Temperature 97.9 degrees, pulse is 79, and blood pressure 128/65. HEENT: PERRLA. NECK: Supple. CHEST: . CARDIOVASCULAR: Irregularly irregular. GASTROINTESTINAL: Abdomen is soft. Positive bowel sounds. No organomegaly. EXTREMITIES: No edema. SKIN: For the skin integrity, refer to the nursing notes. NEUROLOGICAL: Oriented x0. Nonverbal. Bed-bound. Contractures. LABORATORY DATA: WBC of 11.6, hemoglobin 11.7, and platelets of 273,000. Sodium 138, potassium 3.7, BUN of 13, creatinine 0.8, and glucose 185. Lactic acid of 3. ASSESSMENT: Fever despite being on antibiotics and a recent admission for pneumonia that is partially resolved. 1. Respiratory insufficiency. 2. Anion gap elevation. 3. Borderline hypokalemia. PLAN: I have asked Dr. Coffey, Dr. Canales, and Dr. Pierson to see the patient for the above-mentioned diagnoses and treatment. Ashish Jeter M.D. DR: OMER JOB#: [id number] CC:
--- NOTE | 2016-12-22 23:54 | Pulmonology Progress Note ---
Assessment/Plan Problems: (1) Pneumonia (2) At high risk for aspiration (3) Dyspnea (4) Fever (5) Sepsis (6) Dementia (7) Cerebrovascular accident (CVA) Assessment/Plan Assessment/Plan IV antibiotics respiratory treatment swallow study f/u electrolytes check sputum, blood cultures dvt prophylaxis Subjective ROS Limited/Unobtainable: Yes Constitutional: Reports: anorexia, fatigue Respiratory: Reports: dyspnea at rest, dyspnea on exertion, productive cough, shortness of breath, sputum Neurologic: Reports: confusion, weakness Allergies: Coded Allergies: No Known Allergies (Verified , 03/14/07) Uncoded Allergies: POLLEN (Allergy, Unknown, 11/03/11) Objective Last 24 Hour Vital Signs Date Time Temp Pulse Resp B/P Pulse Ox O2 Delivery O2 Flow Rate FiO2 12/22/16 18:26 140/53 12/22/16 16:00 96.3 65 18 140/53 99 Nasal Cannula 2.0 12/22/16 12:00 97.9 65 18 148/68 95 Nasal Cannula 2.0 12/22/16 08:07 97.0 61 18 122/71 100 Simple Mask 2.0 12/22/16 04:00 96.9 62 20 142/62 98 Room Air 12/22/16 00:00 99.3 69 20 137/66 98 Nasal Cannula 2.0 Intake and Output 12/21/16 12/22/16 19:00 07:00 Output Total 650 ml 350 ml Balance -650 ml -350 ml Output Urine Total 650 ml 350 ml General Appearance: no acute distress HEENT: normocephalic, atraumatic, PERRL Respiratory/Chest: chest wall non-tender, decreased breath sounds, accessory muscle use, rhonchi Breasts: no masses Cardiovascular: normal peripheral pulses, normal rate, regular rhythm, no JVD Abdomen: normal bowel sounds, soft, non tender, no organomegaly, non distended Genitourinary: normal external genitalia Extremities: no cyanosis Skin: no rash, no lesions 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 Complete Laboratory Tests 12/22/16 05:45: Prothrombin Time 36.8H, Prothromb Time International Ratio 3.5H Current Medications Medications (Trade) Dose Ordered Sig/Woodrow Route PRN Reason Start Time Stop Time Status Last Admin Dose Admin Acetaminophen (Tylenol) 650 mg Q4H PRN ORAL fever 12/21/16 21:00 01/20/17 20:59 Al Hydroxide/Mg Hydroxide (Mylanta II) 30 ml Q6H PRN ORAL dyspepsia 12/21/16 21:00 01/20/17 20:59 Albuterol/ Ipratropium (DuoNeb 0.5-3(2.5)mg/3ml) 3 ml Q4H PRN HHN Shortness of Breath 12/21/16 21:00 12/26/16 20:59 Amlodipine Besylate (Norvasc) 2.5 mg DAILY ORAL 12/22/16 09:00 01/21/17 08:59 Cefepime HCl 1 gm/ Dextrose 55 ml @ 110 mls/hr Q24H IV 12/21/16 21:00 12/28/16 20:59 12/22/16 21:46 Clonidine HCl (Catapres) 0.1 mg Q8H PRN ORAL For High Blood Pressure 12/21/16 22:15 01/20/17 22:14 Clotrimazole 1 applic 1 applic EVERY 12 HOURS TOPIC 12/22/16 09:00 01/21/17 08:59 12/22/16 22:31 Lisinopril (Zestril) 5 mg BID ORAL 12/22/16 09:00 01/21/17 08:59 12/22/16 18:26 Nitroglycerin (Ntg) 0.4 mg Q5M PRN SL Prn Chest Pain 12/21/16 19:15 01/20/17 19:14 Ondansetron HCl (Zofran) 4 mg Q6H PRN IVP Nausea & Vomiting 12/21/16 21:00 01/20/17 20:59 Polyethylene Glycol (Miralax) 17 gm DAILYPRN PRN ORAL Constipation 12/21/16 21:00 01/20/17 20:59 Promethazine HCl/ Codeine (Phenergan with Codeine) 5 ml Q4H PRN ORAL For Cough 12/21/16 21:00 01/20/17 20:59 Ranitidine HCl (Zantac) 150 mg DAILY ORAL 12/22/16 09:00 01/21/17 08:59 Sennosides (Senokot) 8.6 mg BEDTIME ORAL 12/21/16 21:00 01/20/17 20:59 12/22/16 21:46 Sodium Chloride (0.45% NS 1000ml) 1,000 ml @ 50 mls/hr Q20H IV 12/22/16 09:00 01/21/17 08:59 12/22/16 09:10 Temazepam (Restoril) 15 mg HSPRN PRN ORAL Insomnia 12/21/16 22:15 12/28/16 22:14 Vancomycin HCl (Vanco rx to dose) 1 ea DAILY PRN MISC . 12/22/16 09:00 01/21/17 08:59 Vancomycin HCl/ Dextrose (Vancomycin/D5W) 275 ml @ 183.333 mls/hr Q24H IVPB 12/22/16 16:00 12/27/16 15:59 12/22/16 17:34 Warfarin Sodium (Coumadin per pharmacy) 1 ea DAILY PRN MISC . 12/22/16 09:00 01/21/17 08:59 ALEXANDER TOLBERT Dec 22, 2016 23:54
[2016-12-23] VITALS: BP 114/63
[2016-12-23 07:01] VITALS: BP 121/65
[2016-12-23 08:08] LABS: INR 3.1 (0.9-1.1); PROTHROMBIN TIME 32.4 SEC (9.30-11.50)
[2016-12-23] MEDS: Lisinopril 2.5mg tab ORAL SCH ×2 (08:41→17:03)
[2016-12-23 08:43] VITALS: BP 127/83
--- NOTE | 2016-12-23 11:13 | General Progress Note ---
Assessment/Plan Problem List: (1) Dementia ICD Codes: F03.90 - Unspecified dementia without behavioral disturbance SNOMED: 81344813 (2) Pneumonia ICD Codes: J18.9 - Pneumonia, unspecified organism SNOMED: 008484611 (3) Sepsis ICD Codes: A41.9 - Sepsis, unspecified organism SNOMED: 82795306 (4) Fever ICD Codes: R50.9 - Fever, unspecified SNOMED: 359493523 (5) Dyspnea ICD Codes: R06.00 - Dyspnea, unspecified SNOMED: 448773848 Status: progressing Assessment/Plan intermettinent fever spoke aw dpoa and he wanted her to have oral diet so i ordered it for quality of life and per sons request pna sepsis abx per id Subjective ROS Limited/Unobtainable: Yes Constitutional: Reports: no symptoms Allergies: Coded Allergies: No Known Allergies (Verified , 03/14/07) Uncoded Allergies: POLLEN (Allergy, Unknown, 11/03/11) Objective Last 24 Hour Vital Signs Date Time Temp Pulse Resp B/P Pulse Ox O2 Delivery O2 Flow Rate FiO2 12/23/16 08:43 97.4 68 18 127/83 99 Nasal Cannula 2.0 12/23/16 08:42 68 127/83 12/23/16 08:41 127/83 12/23/16 07:01 97.7 63 20 121/65 79 Nasal Cannula 12/23/16 00:00 97.9 78 20 114/63 99 Room Air 12/22/16 20:00 97.7 72 22 139/66 98 Room Air 12/22/16 18:26 140/53 12/22/16 16:00 96.3 65 18 140/53 99 Nasal Cannula 2.0 12/22/16 12:00 97.9 65 18 148/68 95 Nasal Cannula 2.0 Intake and Output 12/22/16 12/23/16 19:00 07:00 Intake Total 383.333 ml 788.333 ml Output Total 1200 ml Balance 383.333 ml -411.667 ml IV Total 383.333 ml 788.333 ml Output Urine Total 1200 ml Laboratory Tests 12/23/16 04:55: Prothrombin Time 32.4H, Prothromb Time International Ratio 3.1H Height (Feet): 5 Height (Inches): 5.00 Weight (Pounds): 180 EENT: PERRL/EOMI Neck: supple Cardiovascular: normal rate Respiratory/Chest: lungs clear Abdomen: soft Ashish Jeter MD Dec 23, 2016 11:13
[2016-12-23 12:00] VITALS: BP 118/54
[2016-12-23 16:31] VITALS: BP 113/50
[2016-12-23] MEDS: Vancomycin 1.25 GM in D5W 275 ML IVPB SCH (17:01)
[2016-12-23] MEDS ORDERED: Warfarin Sodium 1mg ORAL ONE (20:30)
[2016-12-23 20:35] VITALS: BP 120/70
[2016-12-23] MEDS: Cefepime HCl 1 GM in D5W 55 ML IV SCH (21:01)
--- NOTE | 2016-12-23 23:23 | Pulmonology Progress Note ---
Assessment/Plan Problems: (1) Pneumonia (2) At high risk for aspiration (3) Dyspnea (4) Fever (5) Sepsis (6) Dementia (7) Cerebrovascular accident (CVA) Assessment/Plan Assessment/Plan IV antibiotics respiratory treatment swallow study f/u electrolytes check sputum, blood cultures dvt prophylaxis Subjective ROS Limited/Unobtainable: Yes Constitutional: Reports: anorexia, chills, fatigue Respiratory: Reports: dyspnea at rest, dyspnea on exertion, pleuritic pain, productive cough, shortness of breath, sputum, wheezing Neurologic: Reports: confusion, weakness Allergies: Coded Allergies: No Known Allergies (Verified , 03/14/07) Uncoded Allergies: POLLEN (Allergy, Unknown, 11/03/11) Objective Last 24 Hour Vital Signs Date Time Temp Pulse Resp B/P Pulse Ox O2 Delivery O2 Flow Rate FiO2 12/23/16 20:35 97.9 73 19 120/70 99 Nasal Cannula 2.0 12/23/16 19:34 Nasal Cannula 2.0 28 12/23/16 19:34 81 18 Nasal Cannula 2.0 28 12/23/16 19:34 97 Nasal Cannula 2.0 28 12/23/16 17:03 113/50 12/23/16 16:31 98.1 71 18 113/50 98 Nasal Cannula 2.0 12/23/16 15:25 97.5 12/23/16 12:00 97.5 69 18 118/54 98 Nasal Cannula 2.0 12/23/16 08:43 97.4 68 18 127/83 99 Nasal Cannula 2.0 12/23/16 08:42 68 127/83 12/23/16 08:41 127/83 12/23/16 07:01 97.7 63 20 121/65 79 Nasal Cannula 12/23/16 00:00 97.9 78 20 114/63 99 Room Air Intake and Output 12/22/16 12/23/16 19:00 07:00 Intake Total 383.333 ml 788.333 ml Output Total 1200 ml Balance 383.333 ml -411.667 ml IV Total 383.333 ml 788.333 ml Output Urine Total 1200 ml General Appearance: no acute distress HEENT: normocephalic, atraumatic, PERRL Respiratory/Chest: chest wall non-tender, decreased breath sounds, accessory muscle use, rhonchi, pleural rub Breasts: no masses Cardiovascular: normal peripheral pulses, normal rate, regular rhythm Abdomen: normal bowel sounds, soft, non tender, no organomegaly Genitourinary: normal external genitalia Extremities: no cyanosis Skin: rash, lesions 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, responsive, abnormal CN, motor weakness, disoriented Laboratory Tests 12/23/16 04:55: Prothrombin Time 32.4H, Prothromb Time International Ratio 3.1H 12/23/16 14:55: Vancomycin Level Trough 10.3 Current Medications Medications (Trade) Dose Ordered Sig/Woodrow Route PRN Reason Start Time Stop Time Status Last Admin Dose Admin Acetaminophen (Tylenol) 650 mg Q4H PRN ORAL fever 12/21/16 21:00 01/20/17 20:59 12/23/16 14:26 Al Hydroxide/Mg Hydroxide (Mylanta II) 30 ml Q6H PRN ORAL dyspepsia 12/21/16 21:00 01/20/17 20:59 Albuterol/ Ipratropium (DuoNeb 0.5-3(2.5)mg/3ml) 3 ml Q4H PRN HHN Shortness of Breath 12/21/16 21:00 12/26/16 20:59 Amlodipine Besylate (Norvasc) 2.5 mg DAILY ORAL 12/22/16 09:00 01/21/17 08:59 12/23/16 08:42 Cefepime HCl 1 gm/ Dextrose 55 ml @ 110 mls/hr Q24H IV 12/21/16 21:00 12/28/16 20:59 12/23/16 21:01 Clonidine HCl (Catapres) 0.1 mg Q8H PRN ORAL For High Blood Pressure 12/21/16 22:15 01/20/17 22:14 Clotrimazole 1 applic 1 applic EVERY 12 HOURS TOPIC 12/22/16 09:00 01/21/17 08:59 12/23/16 21:01 Lisinopril (Zestril) 5 mg BID ORAL 12/22/16 09:00 01/21/17 08:59 12/23/16 08:41 Nitroglycerin (Ntg) 0.4 mg Q5M PRN SL Prn Chest Pain 12/21/16 19:15 01/20/17 19:14 Ondansetron HCl (Zofran) 4 mg Q6H PRN IVP Nausea & Vomiting 12/21/16 21:00 01/20/17 20:59 Polyethylene Glycol (Miralax) 17 gm DAILYPRN PRN ORAL Constipation 12/21/16 21:00 01/20/17 20:59 Promethazine HCl/ Codeine (Phenergan with Codeine) 5 ml Q4H PRN ORAL For Cough 12/21/16 21:00 01/20/17 20:59 Ranitidine HCl (Zantac) 150 mg DAILY ORAL 12/22/16 09:00 01/21/17 08:59 12/23/16 08:42 Sennosides (Senokot) 8.6 mg BEDTIME ORAL 12/21/16 21:00 01/20/17 20:59 12/23/16 21:00 Sodium Chloride (0.45% NS 1000ml) 1,000 ml @ 50 mls/hr Q20H IV 12/22/16 09:00 01/21/17 08:59 12/23/16 08:46 Temazepam (Restoril) 15 mg HSPRN PRN ORAL Insomnia 12/21/16 22:15 12/28/16 22:14 Vancomycin HCl (Vanco rx to dose) 1 ea DAILY PRN MISC . 12/22/16 09:00 01/21/17 08:59 Vancomycin HCl/ Dextrose (Vancomycin/D5W) 275 ml @ 183.333 mls/hr Q24H IVPB 12/22/16 16:00 12/27/16 15:59 12/23/16 17:01 Warfarin Sodium (Coumadin per pharmacy) 1 ea DAILY PRN MISC . 12/22/16 09:00 01/21/17 08:59 ALEXANDER TOLBERT Dec 23, 2016 23:22
[2016-12-24] VITALS (7 sets, daily range): BP systolic 126–187; BP diastolic 55–98
[2016-12-24 07:23] LABS: INR 1.9 (0.9-1.1); PROTHROMBIN TIME 19.7 SEC (9.30-11.50)
[2016-12-24] MEDS: Lisinopril 2.5mg tab ORAL SCH ×2 (08:56→17:17)
[2016-12-24 10:43] LABS: ANION GAP 14 (5-15); CALCIUM 8.5 mg/dL (8.6-10.2); CARBON DIOXIDE 24 mEQ/L (20-30); CHLORIDE 105 mEQ/L (98-107); CREATININE 0.6 mg/dL (0.5-0.9); HEMOLYSIS 12; POTASSIUM 4.1 mEQ/L (3.4-4.9); SODIUM 143 mEQ/L (135-145)
--- NOTE | 2016-12-24 12:40 | General Progress Note ---
Assessment/Plan Problem List: (1) Dementia ICD Codes: F03.90 - Unspecified dementia without behavioral disturbance SNOMED: 83061172 (2) Pneumonia ICD Codes: J18.9 - Pneumonia, unspecified organism SNOMED: 316935131 (3) Sepsis ICD Codes: A41.9 - Sepsis, unspecified organism SNOMED: 56010290 (4) Fever ICD Codes: R50.9 - Fever, unspecified SNOMED: 463761175 (5) Dyspnea ICD Codes: R06.00 - Dyspnea, unspecified SNOMED: 421735177 Status: progressing Assessment/Plan intermettinent fever spoke aw dpoa and he wanted her to have pna abx per id afebrile today reviewed chart and labs Subjective ROS Limited/Unobtainable: Yes Constitutional: Reports: no symptoms Allergies: Coded Allergies: No Known Allergies (Verified , 03/14/07) Uncoded Allergies: POLLEN (Allergy, Unknown, 11/03/11) Objective Last 24 Hour Vital Signs Date Time Temp Pulse Resp B/P Pulse Ox O2 Delivery O2 Flow Rate FiO2 12/24/16 11:55 97.7 76 18 140/76 95 Nasal Cannula 2.0 12/24/16 08:56 136/56 12/24/16 08:55 66 136/56 12/24/16 08:15 97.5 66 18 136/56 95 Nasal Cannula 2.0 12/24/16 07:51 97 Nasal Cannula 2.0 28 12/24/16 07:51 82 18 Nasal Cannula 2.0 28 12/24/16 07:51 Nasal Cannula 2.0 28 12/24/16 04:00 97.9 68 18 126/55 98 Nasal Cannula 2.0 12/24/16 00:00 97.7 70 20 137/93 97 Nasal Cannula 2.0 12/23/16 20:35 97.9 73 19 120/70 99 Nasal Cannula 2.0 12/23/16 19:34 Nasal Cannula 2.0 28 12/23/16 19:34 81 18 Nasal Cannula 2.0 28 12/23/16 19:34 97 Nasal Cannula 2.0 28 12/23/16 17:03 113/50 12/23/16 16:31 98.1 71 18 113/50 98 Nasal Cannula 2.0 12/23/16 15:25 97.5 Intake and Output 12/23/16 12/24/16 19:00 07:00 Intake Total 1785.000 ml 845 ml Output Total 900 ml 1550 ml Balance 885.000 ml -705 ml Intake Oral 960 ml 240 ml IV Total 825.000 ml 605 ml Output Urine Total 900 ml 1550 ml Laboratory Tests 12/23/16 14:55: Vancomycin Level Trough 10.3 12/24/16 05:15: Prothrombin Time 19.7H, Prothromb Time International Ratio 1.9H, Sodium Level 143, Potassium Level 4.1, Chloride Level 105, Carbon Dioxide Level 24, Anion Gap 14, Blood Urea Nitrogen 10, Creatinine 0.6, Estimat Glomerular Filtration Rate , Glucose Level 95, Calcium Level 8.5L Height (Feet): 5 Height (Inches): 5.00 Weight (Pounds): 180 General Appearance: confused Cardiovascular: normal rate Respiratory/Chest: lungs clear Abdomen: soft Ashish Jeter MD Dec 24, 2016 12:40
--- NOTE | 2016-12-24 15:03 | Cardiology Report ---
APPROVED REPORT EKG Measurement Heart [id number] CT 184P49 [id number] Normal sinus rhythm Low voltage QRS Borderline ECG
[2016-12-24] MEDS ORDERED: 1/2 NS 1000ml IV ONE (16:00)
--- NOTE | 2016-12-24 16:05 | Infectious Diseases Prog Note ---
Assessment/Plan Problems: (1) Pneumonia Assessment & Plan: with right middle lobe opacity , suspect aspiration, continue vancomycin, and cefepime with flagyl , sputum culture was not done (2) Sepsis Assessment & Plan: due to the above, continue vancomycin and cefepime, await blood culture (3) Fever Assessment & Plan: due to the above, continue antibiotics , use tylenol as needed (4) At high risk for aspiration Assessment & Plan: keep NPO, recommend speech eval. (5) UTI (urinary tract infection) Assessment & Plan: already on cefepime, await culture Subjective ROS Limited/Unobtainable: Yes Allergies: Coded Allergies: No Known Allergies (Verified , 03/14/07) Uncoded Allergies: POLLEN (Allergy, Unknown, 11/03/11) Subjective she is demented lying in bed, awake and alert, not in distress Objective Vital Signs Last 24 Hour Vital Signs Date Time Temp Pulse Resp B/P Pulse Ox O2 Delivery O2 Flow Rate FiO2 12/24/16 11:55 97.7 76 18 140/76 95 Nasal Cannula 2.0 12/24/16 08:56 136/56 12/24/16 08:55 66 136/56 12/24/16 08:15 97.5 66 18 136/56 95 Nasal Cannula 2.0 12/24/16 07:51 97 Nasal Cannula 2.0 28 12/24/16 07:51 82 18 Nasal Cannula 2.0 28 12/24/16 07:51 Nasal Cannula 2.0 28 12/24/16 04:00 97.9 68 18 126/55 98 Nasal Cannula 2.0 12/24/16 00:00 97.7 70 20 137/93 97 Nasal Cannula 2.0 12/23/16 20:35 97.9 73 19 120/70 99 Nasal Cannula 2.0 12/23/16 19:34 Nasal Cannula 2.0 28 12/23/16 19:34 81 18 Nasal Cannula 2.0 28 12/23/16 19:34 97 Nasal Cannula 2.0 28 12/23/16 17:03 113/50 12/23/16 16:31 98.1 71 18 113/50 98 Nasal Cannula 2.0 Height (Feet): 5 Height (Inches): 5.00 Weight (Pounds): 180 General Appearance: WD/WN, no acute distress HEENT: normocephalic, atraumatic, anicteric, mucous membranes moist Respiratory/Chest: chest wall non-tender, lungs clear, normal breath sounds, no respiratory distress, no accessory muscle use Cardiovascular: normal peripheral pulses, normal rate, regular rhythm, no JVD Abdomen: normal bowel sounds, soft, non tender, no organomegaly, non distended , no mass, no scars Extremities: no cyanosis, no clubbing Skin: no rash, no lesions Laboratory Tests Test 12/24/16 05:15 12/24/16 15:08 Prothrombin Time 19.7 SEC (9.30-11.50) H Prothromb Time International Ratio 1.9 (0.9-1.1) H Sodium Level 143 mEQ/L (135-145) Potassium Level 4.1 mEQ/L (3.4-4.9) Chloride Level 105 mEQ/L (98-107) Carbon Dioxide Level 24 mEQ/L (20-30) Anion Gap 14 (5-15) Blood Urea Nitrogen 10 mg/dL (7-23) Creatinine 0.6 mg/dL (0.5-0.9) Estimat Glomerular Filtration Rate mL/min (>60) Glucose Level 95 mg/dL (74-106) Calcium Level 8.5 mg/dL (8.6-10.2) L Random Vancomycin Level Pending Current Medications Medications (Trade) Dose Ordered Sig/Woodrow Route PRN Reason Start Time Stop Time Status Last Admin Dose Admin Acetaminophen (Tylenol) 650 mg Q4H PRN ORAL fever 12/21/16 21:00 01/20/17 20:59 12/23/16 14:26 Al Hydroxide/Mg Hydroxide (Mylanta II) 30 ml Q6H PRN ORAL dyspepsia 12/21/16 21:00 01/20/17 20:59 Albuterol/ Ipratropium (DuoNeb 0.5-3(2.5)mg/3ml) 3 ml Q4H PRN HHN Shortness of Breath 12/21/16 21:00 12/26/16 20:59 Amlodipine Besylate (Norvasc) 2.5 mg DAILY ORAL 12/22/16 09:00 01/21/17 08:59 12/24/16 08:55 Cefepime HCl 1 gm/ Dextrose 55 ml @ 110 mls/hr Q24H IV 12/21/16 21:00 12/28/16 20:59 12/23/16 21:01 Clonidine HCl (Catapres) 0.1 mg Q8H PRN ORAL For High Blood Pressure 12/21/16 22:15 01/20/17 22:14 Clotrimazole 1 applic 1 applic EVERY 12 HOURS TOPIC 12/22/16 09:00 01/21/17 08:59 12/24/16 08:57 Lisinopril (Zestril) 5 mg BID ORAL 12/22/16 09:00 01/21/17 08:59 12/24/16 08:56 Nitroglycerin (Ntg) 0.4 mg Q5M PRN SL Prn Chest Pain 12/21/16 19:15 01/20/17 19:14 Ondansetron HCl (Zofran) 4 mg Q6H PRN IVP Nausea & Vomiting 12/21/16 21:00 01/20/17 20:59 Polyethylene Glycol (Miralax) 17 gm DAILYPRN PRN ORAL Constipation 12/21/16 21:00 01/20/17 20:59 Promethazine HCl/ Codeine (Phenergan with Codeine) 5 ml Q4H PRN ORAL For Cough 12/21/16 21:00 01/20/17 20:59 Ranitidine HCl (Zantac) 150 mg DAILY ORAL 12/22/16 09:00 01/21/17 08:59 12/24/16 08:56 Sennosides (Senokot) 8.6 mg BEDTIME ORAL 12/21/16 21:00 01/20/17 20:59 12/23/16 21:00 Sodium Chloride (0.45% NS 1000ml) 1,000 ml @ 50 mls/hr Q20H IV 12/22/16 09:00 01/21/17 08:59 12/24/16 08:57 Temazepam (Restoril) 15 mg HSPRN PRN ORAL Insomnia 12/21/16 22:15 12/28/16 22:14 Vancomycin HCl (Vanco rx to dose) 1 ea DAILY PRN MISC . 12/22/16 09:00 01/21/17 08:59 Vancomycin HCl/ Dextrose (Vancomycin/D5W) 275 ml @ 183.333 mls/hr Q24H IVPB 12/22/16 16:00 12/27/16 15:59 12/23/16 17:01 Warfarin Sodium (Coumadin per pharmacy) 1 ea DAILY PRN MISC . 12/22/16 09:00 01/21/17 08:59 Warfarin Sodium (Coumadin) 2.5 mg COUMADIN ONCE ORAL 12/24/16 17:00 12/24/16 17:01 Virgilio Pierson M.D. Dec 24, 2016 16:05
[2016-12-24] MEDS ORDERED: Warfarin Sodium 2.5mg ORAL ONE (17:00)
[2016-12-24] MEDS: Vancomycin 1.25 GM in D5W 275 ML IVPB SCH (17:05)
[2016-12-24] MEDS: Cefepime HCl 1 GM in D5W 55 ML IV SCH (20:45)
--- NOTE | 2016-12-24 23:41 | Pulmonology Progress Note ---
Assessment/Plan Problems: (1) Pneumonia (2) At high risk for aspiration (3) Dyspnea (4) Fever (5) Sepsis (6) Dementia (7) Cerebrovascular accident (CVA) Assessment & Plan: Assessment/Plan IV antibiotics respiratory treatment swallow study f/u electrolytes check sputum, blood cultures dvt prophylaxis Subjective ROS Limited/Unobtainable: Yes Constitutional: Reports: anorexia, fatigue Respiratory: Reports: dyspnea at rest, dyspnea on exertion, pleuritic pain, productive cough, shortness of breath, sputum, wheezing Neurologic: Reports: confusion, weakness Allergies: Coded Allergies: No Known Allergies (Verified , 03/14/07) Uncoded Allergies: POLLEN (Allergy, Unknown, 11/03/11) Objective Last 24 Hour Vital Signs Date Time Temp Pulse Resp B/P Pulse Ox O2 Delivery O2 Flow Rate FiO2 12/24/16 21:04 64 18 Nasal Cannula 2.0 28 12/24/16 21:04 97 Nasal Cannula 2.0 28 12/24/16 21:04 Nasal Cannula 2.0 28 12/24/16 20:00 98.2 78 18 187/78 98 Room Air 12/24/16 17:17 151/62 12/24/16 16:00 98.2 66 16 151/62 97 Room Air 12/24/16 11:55 97.7 76 18 140/76 95 Nasal Cannula 2.0 12/24/16 08:56 136/56 12/24/16 08:55 66 136/56 12/24/16 08:15 97.5 66 18 136/56 95 Nasal Cannula 2.0 12/24/16 07:51 97 Nasal Cannula 2.0 12/24/16 07:51 82 18 Nasal Cannula 2.0 12/24/16 07:51 Nasal Cannula 2.0 28 12/24/16 04:00 97.9 68 18 126/55 98 Nasal Cannula 2.0 12/24/16 00:00 97.7 70 20 137/93 97 Nasal Cannula 2.0 Intake and Output 12/23/16 12/24/16 19:00 07:00 Intake Total 1785.000 ml 845 ml Output Total 900 ml 1550 ml Balance 885.000 ml -705 ml Intake Oral 960 ml 240 ml IV Total 825.000 ml 605 ml Output Urine Total 900 ml 1550 ml General Appearance: no acute distress HEENT: normocephalic, atraumatic Respiratory/Chest: chest wall non-tender, decreased breath sounds, accessory muscle use, rhonchi Breasts: no masses Cardiovascular: normal peripheral pulses, normal rate, regular rhythm, no JVD Abdomen: normal bowel sounds, soft, non tender, no organomegaly, non distended Genitourinary: normal external genitalia Extremities: no cyanosis Skin: no rash, no lesions Neurologic/Psychiatric: responsive, abnormal CN, motor weakness, disoriented Laboratory Tests 12/24/16 05:15: Prothrombin Time 19.7H, Prothromb Time International Ratio 1.9H, Sodium Level 143, Potassium Level 4.1, Chloride Level 105, Carbon Dioxide Level 24, Anion Gap 14, Blood Urea Nitrogen 10, Creatinine 0.6, Estimat Glomerular Filtration Rate , Glucose Level 95, Calcium Level 8.5L 12/24/16 15:08: Random Vancomycin Level 13.8 Current Medications Medications (Trade) Dose Ordered Sig/Woodrow Route PRN Reason Start Time Stop Time Status Last Admin Dose Admin Acetaminophen (Tylenol) 650 mg Q4H PRN ORAL fever 12/21/16 21:00 01/20/17 20:59 12/23/16 14:26 Al Hydroxide/Mg Hydroxide (Mylanta II) 30 ml Q6H PRN ORAL dyspepsia 12/21/16 21:00 01/20/17 20:59 Albuterol/ Ipratropium (DuoNeb 0.5-3(2.5)mg/3ml) 3 ml Q4H PRN HHN Shortness of Breath 12/21/16 21:00 12/26/16 20:59 Amlodipine Besylate (Norvasc) 2.5 mg DAILY ORAL 12/22/16 09:00 01/21/17 08:59 12/24/16 08:55 Cefepime HCl 1 gm/ Dextrose 55 ml @ 110 mls/hr Q24H IV 12/21/16 21:00 12/28/16 20:59 12/24/16 20:45 Clonidine HCl (Catapres) 0.1 mg Q8H PRN ORAL For High Blood Pressure 12/21/16 22:15 01/20/17 22:14 Clotrimazole 1 applic 1 applic EVERY 12 HOURS TOPIC 12/22/16 09:00 01/21/17 08:59 12/24/16 20:45 Lisinopril (Zestril) 5 mg BID ORAL 12/22/16 09:00 01/21/17 08:59 12/24/16 17:17 Nitroglycerin (Ntg) 0.4 mg Q5M PRN SL Prn Chest Pain 12/21/16 19:15 01/20/17 19:14 Ondansetron HCl (Zofran) 4 mg Q6H PRN IVP Nausea & Vomiting 12/21/16 21:00 01/20/17 20:59 Polyethylene Glycol (Miralax) 17 gm DAILYPRN PRN ORAL Constipation 12/21/16 21:00 01/20/17 20:59 Promethazine HCl/ Codeine (Phenergan with Codeine) 5 ml Q4H PRN ORAL For Cough 12/21/16 21:00 01/20/17 20:59 Ranitidine HCl (Zantac) 150 mg DAILY ORAL 12/22/16 09:00 01/21/17 08:59 12/24/16 08:56 Sennosides (Senokot) 8.6 mg BEDTIME ORAL 12/21/16 21:00 01/20/17 20:59 12/24/16 20:45 Sodium Chloride (0.45% NS 1000ml) 1,000 ml @ 50 mls/hr Q20H IV 12/22/16 09:00 01/21/17 08:59 12/24/16 08:57 Temazepam (Restoril) 15 mg HSPRN PRN ORAL Insomnia 12/21/16 22:15 12/28/16 22:14 Vancomycin HCl (Vanco rx to dose) 1 ea DAILY PRN MISC . 12/22/16 09:00 01/21/17 08:59 Vancomycin HCl/ Dextrose (Vancomycin/D5W) 275 ml @ 183.333 mls/hr Q24H IVPB 12/22/16 16:00 12/27/16 15:59 12/24/16 17:05 Warfarin Sodium (Coumadin per pharmacy) 1 ea DAILY PRN MISC . 12/22/16 09:00 01/21/17 08:59 ALEXANDER TOLBERT Dec 24, 2016 23:41
[2016-12-25 04:00] VITALS: BP 131/67
[2016-12-25] MEDS: Lisinopril 2.5mg tab ORAL SCH ×2 (07:56→17:58)
[2016-12-25 08:02] LABS: INR 1.6 (0.9-1.1); PROTHROMBIN TIME 16.3 SEC (9.30-11.50)
[2016-12-25 08:12] VITALS: BP 135/57
[2016-12-25 12:00] VITALS: BP 134/61
--- NOTE | 2016-12-25 12:07 | General Progress Note ---
Assessment/Plan Problem List: (1) Dementia ICD Codes: F03.90 - Unspecified dementia without behavioral disturbance SNOMED: 64413080 (2) Pneumonia ICD Codes: J18.9 - Pneumonia, unspecified organism SNOMED: 743182057 (3) Sepsis ICD Codes: A41.9 - Sepsis, unspecified organism SNOMED: 81105255 (4) Fever ICD Codes: R50.9 - Fever, unspecified SNOMED: 512106872 (5) Dyspnea ICD Codes: R06.00 - Dyspnea, unspecified SNOMED: 210948531 Status: progressing Assessment/Plan intermettinent fever spoke aw dpoa and he wanted her t sepsis pna comfort care per dpoa abx per id Subjective ROS Limited/Unobtainable: Yes Constitutional: Reports: no symptoms Allergies: Coded Allergies: No Known Allergies (Verified , 03/14/07) Uncoded Allergies: POLLEN (Allergy, Unknown, 11/03/11) Objective Last 24 Hour Vital Signs Date Time Temp Pulse Resp B/P Pulse Ox O2 Delivery O2 Flow Rate FiO2 12/25/16 08:12 97.0 74 18 135/57 95 Room Air 12/25/16 08:08 99 Nasal Cannula 2.0 28 12/25/16 08:08 70 16 Nasal Cannula 2.0 28 12/25/16 08:08 Nasal Cannula 2.0 28 12/25/16 07:56 135/59 12/25/16 07:55 79 135/59 12/25/16 04:00 97.3 71 18 131/67 100 Nasal Cannula 2.0 12/24/16 23:47 97.9 70 18 134/98 98 Nasal Cannula 2.0 12/24/16 21:04 64 18 Nasal Cannula 2.0 28 12/24/16 21:04 97 Nasal Cannula 2.0 28 12/24/16 21:04 Nasal Cannula 2.0 28 12/24/16 20:00 98.2 78 18 187/78 98 Room Air 12/24/16 17:17 151/62 12/24/16 16:00 98.2 66 16 151/62 97 Room Air Intake and Output 12/24/16 12/25/16 19:00 07:00 Intake Total 1515.000 ml 565 ml Output Total 700 ml 2200 ml Balance 815.000 ml -1635 ml Intake Oral 840 ml 360 ml IV Total 675.000 ml 205 ml Output Urine Total 700 ml 2200 ml Laboratory Tests 12/24/16 15:08: Random Vancomycin Level 13.8 12/25/16 05:25: Prothrombin Time 16.3H, Prothromb Time International Ratio 1.6H Height (Feet): 5 Height (Inches): 5.00 Weight (Pounds): 180 Cardiovascular: normal rate Respiratory/Chest: lungs clear Abdomen: non tender Ashish Jeter MD Dec 25, 2016 12:07
[2016-12-25] MEDS: Flagyl 500mg/NS 100ml Pre-Mix IV SCH ×2 (14:16→22:22)
[2016-12-25 16:00] VITALS: BP 123/46
--- NOTE | 2016-12-25 16:13 | Infectious Diseases Prog Note ---
Assessment/Plan Problems: (1) Pneumonia Assessment & Plan: with right middle lobe opacity , suspect aspiration, continue vancomycin, and cefepime with flagyl , for 10 days . EOT 12/29/16. sputum culture was not done (2) Sepsis Assessment & Plan: due to the above, continue vancomycin and cefepime, await blood culture (3) Fever Assessment & Plan: due to the above, continue antibiotics , use tylenol as needed (4) At high risk for aspiration Assessment & Plan: keep NPO, recommend speech eval. (5) UTI (urinary tract infection) Assessment & Plan: already on cefepime, await culture Subjective ROS Limited/Unobtainable: Yes Allergies: Coded Allergies: No Known Allergies (Verified , 03/14/07) Uncoded Allergies: POLLEN (Allergy, Unknown, 11/03/11) Subjective she is demented lying in bed, awake and alert, not in distress Objective Vital Signs Last 24 Hour Vital Signs Date Time Temp Pulse Resp B/P Pulse Ox O2 Delivery O2 Flow Rate FiO2 12/25/16 12:00 95.7 60 18 134/61 94 Nasal Cannula 2.0 12/25/16 08:12 97.0 74 18 135/57 95 Room Air 12/25/16 08:08 99 Nasal Cannula 2.0 28 12/25/16 08:08 70 16 Nasal Cannula 2.0 28 12/25/16 08:08 Nasal Cannula 2.0 28 12/25/16 07:56 135/59 12/25/16 07:55 79 135/59 12/25/16 04:00 97.3 71 18 131/67 100 Nasal Cannula 2.0 12/24/16 23:47 97.9 70 18 134/98 98 Nasal Cannula 2.0 12/24/16 21:04 64 18 Nasal Cannula 2.0 28 12/24/16 21:04 97 Nasal Cannula 2.0 28 12/24/16 21:04 Nasal Cannula 2.0 28 12/24/16 20:00 98.2 78 18 187/78 98 Room Air 12/24/16 17:17 151/62 Height (Feet): 5 Height (Inches): 5.00 Weight (Pounds): 180 General Appearance: WD/WN, no acute distress HEENT: normocephalic, atraumatic Respiratory/Chest: chest wall non-tender, no respiratory distress, no accessory muscle use, decreased breath sounds Cardiovascular: normal peripheral pulses, normal rate, regular rhythm, no gallop/murmur Abdomen: normal bowel sounds, soft, non tender, no organomegaly, non distended , no mass Extremities: no cyanosis, no clubbing Skin: no rash, no lesions Laboratory Tests Test 12/25/16 05:25 Prothrombin Time 16.3 SEC (9.30-11.50) H Prothromb Time International Ratio 1.6 (0.9-1.1) H Current Medications Medications (Trade) Dose Ordered Sig/Woodrow Route PRN Reason Start Time Stop Time Status Last Admin Dose Admin Acetaminophen (Tylenol) 650 mg Q4H PRN ORAL fever 12/21/16 21:00 01/20/17 20:59 12/23/16 14:26 Al Hydroxide/Mg Hydroxide (Mylanta II) 30 ml Q6H PRN ORAL dyspepsia 12/21/16 21:00 01/20/17 20:59 Albuterol/ Ipratropium (DuoNeb 0.5-3(2.5)mg/3ml) 3 ml Q4H PRN HHN Shortness of Breath 12/21/16 21:00 12/26/16 20:59 Amlodipine Besylate (Norvasc) 2.5 mg DAILY ORAL 12/22/16 09:00 01/21/17 08:59 12/25/16 07:55 Cefepime HCl 1 gm/ Dextrose 55 ml @ 110 mls/hr Q24H IV 12/21/16 21:00 12/28/16 20:59 12/24/16 20:45 Clonidine HCl (Catapres) 0.1 mg Q8H PRN ORAL For High Blood Pressure 12/21/16 22:15 01/20/17 22:14 Clotrimazole 1 applic 1 applic EVERY 12 HOURS TOPIC 12/22/16 09:00 01/21/17 08:59 12/25/16 07:56 Lisinopril (Zestril) 5 mg BID ORAL 12/22/16 09:00 01/21/17 08:59 12/25/16 07:56 Metronidazole (Flagyl) 100 ml @ 100 mls/hr Q8HR IV 12/25/16 14:30 01/01/17 14:29 12/25/16 14:16 Nitroglycerin (Ntg) 0.4 mg Q5M PRN SL Prn Chest Pain 12/21/16 19:15 01/20/17 19:14 Ondansetron HCl (Zofran) 4 mg Q6H PRN IVP Nausea & Vomiting 12/21/16 21:00 01/20/17 20:59 Polyethylene Glycol (Miralax) 17 gm DAILYPRN PRN ORAL Constipation 12/21/16 21:00 01/20/17 20:59 Promethazine HCl/ Codeine (Phenergan with Codeine) 5 ml Q4H PRN ORAL For Cough 12/21/16 21:00 01/20/17 20:59 Ranitidine HCl (Zantac) 150 mg DAILY ORAL 12/22/16 09:00 01/21/17 08:59 12/25/16 07:55 Sennosides (Senokot) 8.6 mg BEDTIME ORAL 12/21/16 21:00 01/20/17 20:59 12/24/16 20:45 Sodium Chloride (0.45% NS 1000ml) 1,000 ml @ 50 mls/hr Q20H IV 12/22/16 09:00 01/21/17 08:59 12/25/16 07:59 Temazepam (Restoril) 15 mg HSPRN PRN ORAL Insomnia 12/21/16 22:15 12/28/16 22:14 Vancomycin HCl (Vanco rx to dose) 1 ea DAILY PRN MISC . 12/22/16 09:00 01/21/17 08:59 Vancomycin HCl/ Dextrose (Vancomycin/D5W) 275 ml @ 183.333 mls/hr Q24H IVPB 12/22/16 16:00 12/27/16 15:59 12/24/16 17:05 Warfarin Sodium (Coumadin per pharmacy) 1 ea DAILY PRN MISC . 12/22/16 09:00 01/21/17 08:59 Warfarin Sodium 2.5 mg 2.5 mg COUMADIN ONCE ORAL 12/25/16 17:00 12/25/16 17:01 Virgilio Pierson M.D. Dec 25, 2016 16:13
[2016-12-25] MEDS ORDERED: Warfarin Sodium 2.5mg ORAL ONE (17:00)
[2016-12-25] MEDS: Vancomycin 1.25 GM in D5W 275 ML IVPB SCH (17:14)
[2016-12-25 20:00] VITALS: BP 119/67
[2016-12-25] MEDS: Cefepime HCl 1 GM in D5W 55 ML IV SCH (21:46)
--- NOTE | 2016-12-25 22:42 | Pulmonology Progress Note ---
Assessment/Plan Problems: (1) Pneumonia (2) At high risk for aspiration (3) Dyspnea (4) Fever (5) Sepsis (6) Dementia (7) Cerebrovascular accident (CVA) Assessment/Plan Assessment & Plan: Assessment/Plan IV antibiotics respiratory treatment swallow study f/u electrolytes check sputum, blood cultures dvt prophylaxis Subjective ROS Limited/Unobtainable: Yes Constitutional: Reports: anorexia, chills, fatigue, fever Respiratory: Reports: dyspnea at rest, dyspnea on exertion, pleuritic pain, productive cough, shortness of breath, wheezing Neurologic: Reports: confusion, weakness Allergies: Coded Allergies: No Known Allergies (Verified , 03/14/07) Uncoded Allergies: POLLEN (Allergy, Unknown, 11/03/11) Objective Last 24 Hour Vital Signs Date Time Temp Pulse Resp B/P Pulse Ox O2 Delivery O2 Flow Rate FiO2 12/25/16 20:00 97.7 62 17 119/67 99 Nasal Cannula 2.0 12/25/16 17:58 123/46 12/25/16 16:00 97.9 73 18 123/46 96 Nasal Cannula 2.0 12/25/16 12:00 95.7 60 18 134/61 94 Nasal Cannula 2.0 12/25/16 08:12 97.0 74 18 135/57 95 Room Air 12/25/16 08:08 99 Nasal Cannula 2.0 28 12/25/16 08:08 70 16 Nasal Cannula 2.0 28 12/25/16 08:08 Nasal Cannula 2.0 28 12/25/16 07:56 135/59 12/25/16 07:55 79 135/59 12/25/16 04:00 97.3 71 18 131/67 100 Nasal Cannula 2.0 12/24/16 23:47 97.9 70 18 134/98 98 Nasal Cannula 2.0 Intake and Output 12/24/16 12/25/16 19:00 07:00 Intake Total 1515.000 ml 565 ml Output Total 700 ml 2200 ml Balance 815.000 ml -1635 ml Intake Oral 840 ml 360 ml IV Total 675.000 ml 205 ml Output Urine Total 700 ml 2200 ml General Appearance: no acute distress HEENT: normocephalic, atraumatic, PERRL Respiratory/Chest: chest wall non-tender, decreased breath sounds, accessory muscle use, rhonchi Breasts: no masses Cardiovascular: normal peripheral pulses, normal rate, regular rhythm, no JVD Abdomen: normal bowel sounds, soft, non tender, no organomegaly Genitourinary: normal external genitalia Extremities: no cyanosis Skin: rash, lesions Neurologic/Psychiatric: brake holder II-XII grossly normal, responsive, disoriented Laboratory Tests 12/25/16 05:25: Prothrombin Time 16.3H, Prothromb Time International Ratio 1.6H Current Medications Medications (Trade) Dose Ordered Sig/Woodrow Route PRN Reason Start Time Stop Time Status Last Admin Dose Admin Acetaminophen (Tylenol) 650 mg Q4H PRN ORAL fever 12/21/16 21:00 01/20/17 20:59 12/23/16 14:26 Al Hydroxide/Mg Hydroxide (Mylanta II) 30 ml Q6H PRN ORAL dyspepsia 12/21/16 21:00 01/20/17 20:59 Albuterol/ Ipratropium (DuoNeb 0.5-3(2.5)mg/3ml) 3 ml Q4H PRN HHN Shortness of Breath 12/21/16 21:00 12/26/16 20:59 Amlodipine Besylate (Norvasc) 2.5 mg DAILY ORAL 12/22/16 09:00 01/21/17 08:59 12/25/16 07:55 Cefepime HCl 1 gm/ Dextrose 55 ml @ 110 mls/hr Q24H IV 12/21/16 21:00 12/28/16 20:59 12/25/16 21:46 Clonidine HCl (Catapres) 0.1 mg Q8H PRN ORAL For High Blood Pressure 12/21/16 22:15 01/20/17 22:14 Clotrimazole 1 applic 1 applic EVERY 12 HOURS TOPIC 12/22/16 09:00 01/21/17 08:59 12/25/16 21:46 Lisinopril (Zestril) 5 mg BID ORAL 12/22/16 09:00 01/21/17 08:59 12/25/16 17:58 Metronidazole (Flagyl) 100 ml @ 100 mls/hr Q8HR IV 12/25/16 14:30 01/01/17 14:29 12/25/16 22:22 Nitroglycerin (Ntg) 0.4 mg Q5M PRN SL Prn Chest Pain 12/21/16 19:15 01/20/17 19:14 Ondansetron HCl (Zofran) 4 mg Q6H PRN IVP Nausea & Vomiting 12/21/16 21:00 01/20/17 20:59 Polyethylene Glycol (Miralax) 17 gm DAILYPRN PRN ORAL Constipation 12/21/16 21:00 01/20/17 20:59 Promethazine HCl/ Codeine (Phenergan with Codeine) 5 ml Q4H PRN ORAL For Cough 12/21/16 21:00 01/20/17 20:59 Ranitidine HCl (Zantac) 150 mg DAILY ORAL 12/22/16 09:00 01/21/17 08:59 12/25/16 07:55 Sennosides (Senokot) 8.6 mg BEDTIME ORAL 12/21/16 21:00 01/20/17 20:59 12/25/16 21:46 Sodium Chloride 1,000 ml @ 50 mls/hr Q20H IV 12/22/16 09:00 01/21/17 08:59 12/25/16 07:59 Temazepam (Restoril) 15 mg HSPRN PRN ORAL Insomnia 12/21/16 22:15 12/28/16 22:14 Vancomycin HCl (Vanco rx to dose) 1 ea DAILY PRN MISC . 12/22/16 09:00 01/21/17 08:59 Vancomycin HCl/ Dextrose (Vancomycin/D5W) 275 ml @ 183.333 mls/hr Q24H IVPB 12/22/16 16:00 12/27/16 15:59 12/25/16 17:14 Warfarin Sodium (Coumadin per pharmacy) 1 ea DAILY PRN MISC . 12/22/16 09:00 01/21/17 08:59 ALEXANDER TOLBERT Dec 25, 2016 22:42
[2016-12-26] VITALS: BP 128/71
[2016-12-26 04:00] VITALS: BP 127/61
[2016-12-26] MEDS: Flagyl 500mg/NS 100ml Pre-Mix IV SCH ×3 (05:50→21:33)
[2016-12-26 07:52] LABS: INR 1.5 (0.9-1.1); PROTHROMBIN TIME 15.1 SEC (9.30-11.50)
[2016-12-26 08:00] VITALS: BP 133/61
[2016-12-26] MEDS: Lisinopril 2.5mg tab ORAL SCH ×2 (08:57→18:07)
[2016-12-26 12:00] VITALS: BP 132/60
--- NOTE | 2016-12-26 13:08 | General Progress Note ---
Assessment/Plan Problem List: (1) Dementia ICD Codes: F03.90 - Unspecified dementia without behavioral disturbance SNOMED: 27673943 (2) Pneumonia ICD Codes: J18.9 - Pneumonia, unspecified organism SNOMED: 938324816 (3) Sepsis ICD Codes: A41.9 - Sepsis, unspecified organism SNOMED: 91227067 (4) Fever ICD Codes: R50.9 - Fever, unspecified SNOMED: 055908351 (5) Dyspnea ICD Codes: R06.00 - Dyspnea, unspecified SNOMED: 442005621 Status: progressing Assessment/Plan abx per id afebrile sepsis and pna improving Subjective ROS Limited/Unobtainable: Yes Constitutional: Reports: no symptoms Allergies: Coded Allergies: No Known Allergies (Verified , 03/14/07) Uncoded Allergies: POLLEN (Allergy, Unknown, 11/03/11) Objective Last 24 Hour Vital Signs Date Time Temp Pulse Resp B/P Pulse Ox O2 Delivery O2 Flow Rate FiO2 12/26/16 12:00 98.4 53 22 132/60 98 Nasal Cannula 2.0 12/26/16 08:57 127/61 12/26/16 08:56 60 127/61 12/26/16 08:00 97.1 62 16 133/61 99 Nasal Cannula 2.0 12/26/16 07:15 98 Nasal Cannula 2.0 28 12/26/16 07:15 Nasal Cannula 2.0 28 12/26/16 07:15 60 16 Nasal Cannula 2.0 28 12/26/16 04:00 98.8 63 18 127/61 93 Nasal Cannula 2.0 12/26/16 00:00 97.9 65 18 128/71 96 Room Air 12/25/16 23:42 Nasal Cannula 2.0 28 12/25/16 23:42 98 Nasal Cannula 2.0 28 12/25/16 23:41 61 16 Nasal Cannula 2.0 28 12/25/16 20:00 97.7 62 17 119/67 99 Nasal Cannula 2.0 12/25/16 17:58 123/46 12/25/16 16:00 97.9 73 18 123/46 96 Nasal Cannula 2.0 Intake and Output 12/25/16 12/26/16 19:00 07:00 Intake Total 1325.000 ml 345 ml Output Total 460 ml 1300 ml Balance 865.000 ml -955 ml Intake Oral 600 ml 240 ml IV Total 725.000 ml 105 ml Output Urine Total 460 ml 1300 ml Laboratory Tests 12/26/16 06:35: Prothrombin Time 15.1H, Prothromb Time International Ratio 1.5H Height (Feet): 5 Height (Inches): 5.00 Weight (Pounds): 180 EENT: PERRL/EOMI Neck: supple Cardiovascular: normal peripheral pulses, normal rate Respiratory/Chest: lungs clear Abdomen: soft Ashish Jeter MD Dec 26, 2016 13:08
[2016-12-26 16:00] VITALS: BP 132/90
--- NOTE | 2016-12-26 16:04 | Infectious Diseases Prog Note ---
Assessment/Plan Problems: (1) Pneumonia Assessment & Plan: with right middle lobe opacity , suspect aspiration, continue vancomycin, and cefepime with flagyl , for 10 days . EOT 12/29/16. sputum culture was not done (2) Sepsis Assessment & Plan: due to the above, continue vancomycin and cefepime, await blood culture (3) Fever Assessment & Plan: due to the above, continue antibiotics , use tylenol as needed (4) At high risk for aspiration Assessment & Plan: keep NPO, recommend speech eval. (5) UTI (urinary tract infection) Assessment & Plan: already on cefepime, no culture was done Subjective ROS Limited/Unobtainable: Yes Allergies: Coded Allergies: No Known Allergies (Verified , 03/14/07) Uncoded Allergies: POLLEN (Allergy, Unknown, 11/03/11) Subjective she is demented lying in bed, awake and alert, not in distress Objective Vital Signs Last 24 Hour Vital Signs Date Time Temp Pulse Resp B/P Pulse Ox O2 Delivery O2 Flow Rate FiO2 12/26/16 12:00 98.4 53 22 132/60 98 Nasal Cannula 2.0 12/26/16 08:57 127/61 12/26/16 08:56 60 127/61 12/26/16 08:00 97.1 62 16 133/61 99 Nasal Cannula 2.0 12/26/16 07:15 98 Nasal Cannula 2.0 28 12/26/16 07:15 Nasal Cannula 2.0 28 12/26/16 07:15 60 16 Nasal Cannula 2.0 28 12/26/16 04:00 98.8 63 18 127/61 93 Nasal Cannula 2.0 12/26/16 00:00 97.9 65 18 128/71 96 Room Air 12/25/16 23:42 Nasal Cannula 2.0 28 12/25/16 23:42 98 Nasal Cannula 2.0 28 12/25/16 23:41 61 16 Nasal Cannula 2.0 28 12/25/16 20:00 97.7 62 17 119/67 99 Nasal Cannula 2.0 12/25/16 17:58 123/46 Height (Feet): 5 Height (Inches): 5.00 Weight (Pounds): 180 General Appearance: WD/WN, no acute distress HEENT: normocephalic, atraumatic, anicteric Respiratory/Chest: chest wall non-tender, lungs clear, normal breath sounds, no respiratory distress, no accessory muscle use Cardiovascular: normal peripheral pulses, normal rate, regular rhythm, no gallop/murmur Abdomen: normal bowel sounds, soft, non tender, no organomegaly, non distended , no mass Extremities: no cyanosis, no clubbing Skin: no rash, no lesions Laboratory Tests Test 12/26/16 06:35 Prothrombin Time 15.1 SEC (9.30-11.50) H Prothromb Time International Ratio 1.5 (0.9-1.1) H Current Medications Medications (Trade) Dose Ordered Sig/Woodrow Route PRN Reason Start Time Stop Time Status Last Admin Dose Admin Acetaminophen (Tylenol) 650 mg Q4H PRN ORAL fever 12/21/16 21:00 01/20/17 20:59 12/23/16 14:26 Al Hydroxide/Mg Hydroxide (Mylanta II) 30 ml Q6H PRN ORAL dyspepsia 12/21/16 21:00 01/20/17 20:59 Albuterol/ Ipratropium (DuoNeb 0.5-3(2.5)mg/3ml) 3 ml Q4H PRN HHN Shortness of Breath 12/21/16 21:00 12/26/16 20:59 Amlodipine Besylate (Norvasc) 2.5 mg DAILY ORAL 12/22/16 09:00 01/21/17 08:59 12/26/16 08:56 Cefepime HCl 1 gm/ Dextrose 55 ml @ 110 mls/hr Q24H IV 12/21/16 21:00 12/28/16 20:59 12/25/16 21:46 Clonidine HCl (Catapres) 0.1 mg Q8H PRN ORAL For High Blood Pressure 12/21/16 22:15 01/20/17 22:14 Clotrimazole 1 applic 1 applic EVERY 12 HOURS TOPIC 12/22/16 09:00 01/21/17 08:59 12/26/16 10:37 Lisinopril (Zestril) 5 mg BID ORAL 12/22/16 09:00 01/21/17 08:59 12/26/16 08:57 Metronidazole (Flagyl) 100 ml @ 100 mls/hr Q8HR IV 12/25/16 14:30 01/01/17 14:29 12/26/16 14:13 Nitroglycerin (Ntg) 0.4 mg Q5M PRN SL Prn Chest Pain 12/21/16 19:15 01/20/17 19:14 Ondansetron HCl (Zofran) 4 mg Q6H PRN IVP Nausea & Vomiting 12/21/16 21:00 01/20/17 20:59 Polyethylene Glycol (Miralax) 17 gm DAILYPRN PRN ORAL Constipation 12/21/16 21:00 01/20/17 20:59 Promethazine HCl/ Codeine (Phenergan with Codeine) 5 ml Q4H PRN ORAL For Cough 12/21/16 21:00 01/20/17 20:59 Ranitidine HCl (Zantac) 150 mg DAILY ORAL 12/22/16 09:00 01/21/17 08:59 12/26/16 08:56 Sennosides (Senokot) 8.6 mg BEDTIME ORAL 12/21/16 21:00 01/20/17 20:59 12/25/16 21:46 Sodium Chloride 1,000 ml @ 50 mls/hr Q20H IV 12/22/16 09:00 01/21/17 08:59 12/26/16 10:34 Temazepam (Restoril) 15 mg HSPRN PRN ORAL Insomnia 12/21/16 22:15 12/28/16 22:14 Vancomycin HCl (Vanco rx to dose) 1 ea DAILY PRN MISC . 12/22/16 09:00 01/21/17 08:59 Vancomycin HCl/ Dextrose (Vancomycin/D5W) 275 ml @ 183.333 mls/hr Q24H IVPB 12/22/16 16:00 12/27/16 15:59 12/25/16 17:14 Warfarin Sodium (Coumadin per pharmacy) 1 ea DAILY PRN MISC . 12/22/16 09:00 01/21/17 08:59 Warfarin Sodium (Coumadin) 3 mg COUMADIN ORAL 12/26/16 17:00 12/26/16 17:01 Virgilio Pierson M.D. Dec 26, 2016 16:03
[2016-12-26] MEDS ORDERED: Warfarin Sodium 3mg ORAL SCH (17:00)
[2016-12-26 19:00] VITALS: BP 129/88
[2016-12-26] MEDS: Vancomycin 1.25 GM in D5W 275 ML IVPB SCH (19:10)
[2016-12-26] MEDS: Cefepime HCl 1 GM in D5W 55 ML IV SCH (20:01)
--- NOTE | 2016-12-26 23:52 | Pulmonology Progress Note ---
Assessment/Plan Problems: (1) Pneumonia (2) At high risk for aspiration (3) Dyspnea (4) Fever (5) Sepsis (6) Dementia (7) Cerebrovascular accident (CVA) Assessment/Plan IV antibiotics respiratory treatment swallow study f/u electrolytes check sputum, blood cultures dvt prophylaxis Subjective ROS Limited/Unobtainable: Yes Constitutional: Reports: chills, fatigue, fever Respiratory: Reports: dyspnea at rest, dyspnea on exertion, pleuritic pain, productive cough, shortness of breath, sputum, wheezing Neurologic: Reports: confusion, weakness Allergies: Coded Allergies: No Known Allergies (Verified , 03/14/07) Uncoded Allergies: POLLEN (Allergy, Unknown, 11/03/11) Objective Last 24 Hour Vital Signs Date Time Temp Pulse Resp B/P Pulse Ox O2 Delivery O2 Flow Rate FiO2 12/26/16 19:36 Nasal Cannula 2.0 28 12/26/16 19:35 98 Nasal Cannula 2.0 28 12/26/16 19:35 73 16 Nasal Cannula 2.0 28 12/26/16 19:00 98.9 69 18 129/88 100 Nasal Cannula 2.0 12/26/16 18:07 132/60 12/26/16 16:00 99.7 67 18 132/90 Nasal Cannula 2.0 12/26/16 12:00 98.4 53 22 132/60 98 Nasal Cannula 2.0 12/26/16 08:57 127/61 12/26/16 08:56 60 127/61 12/26/16 08:00 97.1 62 16 133/61 99 Nasal Cannula 2.0 12/26/16 07:15 98 Nasal Cannula 2.0 28 12/26/16 07:15 Nasal Cannula 2.0 28 12/26/16 07:15 60 16 Nasal Cannula 2.0 28 12/26/16 04:00 98.8 63 18 127/61 93 Nasal Cannula 2.0 12/26/16 00:00 97.9 65 18 128/71 96 Room Air Intake and Output 12/25/16 12/26/16 19:00 07:00 Intake Total 1325.000 ml 345 ml Output Total 460 ml 1300 ml Balance 865.000 ml -955 ml Intake Oral 600 ml 240 ml IV Total 725.000 ml 105 ml Output Urine Total 460 ml 1300 ml General Appearance: no acute distress HEENT: normocephalic, atraumatic, PERRL Respiratory/Chest: chest wall non-tender, decreased breath sounds, accessory muscle use, rhonchi, pleural rub Breasts: no masses Cardiovascular: normal peripheral pulses, normal rate, regular rhythm, no JVD Abdomen: normal bowel sounds, soft, non tender, no organomegaly, non distended Extremities: no cyanosis Skin: no rash 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, no motor/sensory deficits Laboratory Tests 12/26/16 06:35: Prothrombin Time 15.1H, Prothromb Time International Ratio 1.5H Current Medications Medications (Trade) Dose Ordered Sig/Woodrow Route PRN Reason Start Time Stop Time Status Last Admin Dose Admin Acetaminophen (Tylenol) 650 mg Q4H PRN ORAL fever 12/21/16 21:00 01/20/17 20:59 12/23/16 14:26 Al Hydroxide/Mg Hydroxide (Mylanta II) 30 ml Q6H PRN ORAL dyspepsia 12/21/16 21:00 01/20/17 20:59 Amlodipine Besylate (Norvasc) 2.5 mg DAILY ORAL 12/22/16 09:00 01/21/17 08:59 12/26/16 08:56 Cefepime HCl 1 gm/ Dextrose 55 ml @ 110 mls/hr Q24H IV 12/21/16 21:00 12/28/16 20:59 12/26/16 20:01 Clonidine HCl (Catapres) 0.1 mg Q8H PRN ORAL For High Blood Pressure 12/21/16 22:15 01/20/17 22:14 Clotrimazole 1 applic 1 applic EVERY 12 HOURS TOPIC 12/22/16 09:00 01/21/17 08:59 12/26/16 21:50 Lisinopril (Zestril) 5 mg BID ORAL 12/22/16 09:00 01/21/17 08:59 12/26/16 18:07 Metronidazole (Flagyl) 100 ml @ 100 mls/hr Q8HR IV 12/25/16 14:30 01/01/17 14:29 12/26/16 21:33 Nitroglycerin (Ntg) 0.4 mg Q5M PRN SL Prn Chest Pain 12/21/16 19:15 01/20/17 19:14 Ondansetron HCl (Zofran) 4 mg Q6H PRN IVP Nausea & Vomiting 12/21/16 21:00 01/20/17 20:59 Polyethylene Glycol (Miralax) 17 gm DAILYPRN PRN ORAL Constipation 12/21/16 21:00 01/20/17 20:59 Promethazine HCl/ Codeine (Phenergan with Codeine) 5 ml Q4H PRN ORAL For Cough 12/21/16 21:00 01/20/17 20:59 Ranitidine HCl (Zantac) 150 mg DAILY ORAL 12/22/16 09:00 01/21/17 08:59 12/26/16 08:56 Sennosides (Senokot) 8.6 mg BEDTIME ORAL 12/21/16 21:00 01/20/17 20:59 12/26/16 20:00 Sodium Chloride 1,000 ml @ 50 mls/hr Q20H IV 12/22/16 09:00 01/21/17 08:59 12/26/16 10:34 Temazepam (Restoril) 15 mg HSPRN PRN ORAL Insomnia 12/21/16 22:15 12/28/16 22:14 Vancomycin HCl (Vanco rx to dose) 1 ea DAILY PRN MISC . 12/22/16 09:00 01/21/17 08:59 Vancomycin HCl/ Dextrose (Vancomycin/D5W) 275 ml @ 183.333 mls/hr Q24H IVPB 12/22/16 16:00 12/27/16 15:59 12/26/16 19:10 Warfarin Sodium (Coumadin per pharmacy) 1 ea DAILY PRN MISC . 12/22/16 09:00 01/21/17 08:59 ALEXANDER TOLBERT Dec 26, 2016 23:52
[2016-12-27] VITALS: BP 141/71
[2016-12-27 03:28] VITALS: BP 147/87
[2016-12-27] MEDS: Flagyl 500mg/NS 100ml Pre-Mix IV SCH (05:40)
[2016-12-27 07:55] LABS: INR 1.4 (0.9-1.1); PROTHROMBIN TIME 14.8 SEC (9.30-11.50)
[2016-12-27 08:00] VITALS: BP 107/60
[2016-12-27] MEDS: Lisinopril 2.5mg tab ORAL SCH (09:27)
[2016-12-27 12:00] VITALS: BP 127/62
--- NOTE | 2016-12-27 12:26 | General Progress Note ---
Assessment/Plan Problem List: (1) Dementia ICD Codes: F03.90 - Unspecified dementia without behavioral disturbance SNOMED: 59516667 (2) Pneumonia ICD Codes: J18.9 - Pneumonia, unspecified organism SNOMED: 976978007 (3) Sepsis ICD Codes: A41.9 - Sepsis, unspecified organism SNOMED: 07988265 (4) Fever ICD Codes: R50.9 - Fever, unspecified SNOMED: 903500014 (5) Dyspnea ICD Codes: R06.00 - Dyspnea, unspecified SNOMED: 658216146 Status: progressing Assessment/Plan afebrile vitals stable dc back to snf if ok w dr sanchez Subjective ROS Limited/Unobtainable: Yes Constitutional: Reports: no symptoms Allergies: Coded Allergies: No Known Allergies (Verified , 03/14/07) Uncoded Allergies: POLLEN (Allergy, Unknown, 11/03/11) Objective Last 24 Hour Vital Signs Date Time Temp Pulse Resp B/P Pulse Ox O2 Delivery O2 Flow Rate FiO2 12/27/16 09:27 71 126/55 12/27/16 09:27 126/55 12/27/16 08:00 98.2 69 19 107/60 98 Room Air 12/27/16 03:28 97.9 65 18 147/87 97 Nasal Cannula 2.0 12/27/16 00:00 97.7 76 18 141/71 99 Nasal Cannula 2.0 12/26/16 19:36 Nasal Cannula 2.0 28 12/26/16 19:35 98 Nasal Cannula 2.0 28 12/26/16 19:35 73 16 Nasal Cannula 2.0 28 12/26/16 19:00 98.9 69 18 129/88 100 Nasal Cannula 2.0 12/26/16 18:07 132/60 12/26/16 16:00 99.7 67 18 132/90 Nasal Cannula 2.0 Intake and Output 12/26/16 12/27/16 19:00 07:00 Intake Total 1140 ml 1135 ml Output Total 800 ml 1650 ml Balance 340 ml -515 ml Intake Oral 840 ml 200 ml IV Total 300 ml 935 ml Output Urine Total 800 ml 1650 ml Laboratory Tests 12/27/16 05:20: Prothrombin Time 14.8H, Prothromb Time International Ratio 1.4H Height (Feet): 5 Height (Inches): 5.00 Weight (Pounds): 180 EENT: PERRL/EOMI Neck: supple Cardiovascular: normal rate Respiratory/Chest: lungs clear Abdomen: soft Ashish Jeter MD Dec 27, 2016 12:26
[2016-12-27] MEDS ORDERED: VANCOMYCIN1.25 GM/25 IVPB ×2 (12:30→12:39)
[2016-12-27] MEDS ORDERED: CEFEPIME-D1 GM/50 ML IVPB ×2 (12:31→12:41)
[2016-12-27] MEDS ORDERED: METRONIDAZOLE500 MG ORAL (12:33)
[2016-12-27] MEDS ORDERED: Tubing IV Secondary IV ONE (13:56)
[2016-12-27] MEDS ORDERED: 1/2 NS 1000ml IV ONE (13:56)
[2016-12-27] MEDS ORDERED: Warfarin Sodium 3mg ORAL ONE (17:00)
--- NOTE | 2016-12-27 22:48 | Pulmonology Progress Note ---
Assessment/Plan Problems: (1) Pneumonia (2) At high risk for aspiration (3) Dyspnea (4) Fever (5) Sepsis (6) Dementia (7) Cerebrovascular accident (CVA) Assessment/Plan Assessment/Plan IV antibiotics respiratory treatment swallow study f/u electrolytes check sputum, blood cultures dvt prophylaxis Subjective ROS Limited/Unobtainable: No Constitutional: Reports: anorexia, chills, fatigue, fever Respiratory: Reports: dyspnea at rest, dyspnea on exertion, pleuritic pain, productive cough, shortness of breath, sputum, wheezing Neurologic: Reports: weakness Allergies: Coded Allergies: No Known Allergies (Verified , 03/14/07) Uncoded Allergies: POLLEN (Allergy, Unknown, 11/03/11) Objective Last 24 Hour Vital Signs Date Time Temp Pulse Resp B/P Pulse Ox O2 Delivery O2 Flow Rate FiO2 12/27/16 12:00 97.5 65 20 127/62 97 Nasal Cannula 2.0 12/27/16 09:27 71 126/55 12/27/16 09:27 126/55 12/27/16 08:00 98.2 69 19 107/60 98 Room Air 12/27/16 03:28 97.9 65 18 147/87 97 Nasal Cannula 2.0 12/27/16 00:00 97.7 76 18 141/71 99 Nasal Cannula 2.0 Intake and Output 12/26/16 12/27/16 19:00 07:00 Intake Total 1140 ml 1135 ml Output Total 800 ml 1650 ml Balance 340 ml -515 ml Intake Oral 840 ml 200 ml IV Total 300 ml 935 ml Output Urine Total 800 ml 1650 ml General Appearance: no acute distress HEENT: normocephalic, atraumatic, anicteric, PERRL Respiratory/Chest: chest wall non-tender, decreased breath sounds, accessory muscle use, crackles/rales, rhonchi Breasts: no masses Cardiovascular: normal peripheral pulses, normal rate, regular rhythm, no JVD Abdomen: normal bowel sounds, soft, non tender, no organomegaly, non distended Genitourinary: normal external genitalia Extremities: no cyanosis Skin: no rash 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
--- NOTE | 2016-12-28 13:56 | Discharge Summary ---
Discharge Summary Hospital Course Date of Admission Dec 20, 2016 at 21:22 Date of Discharge Dec 27, 2016 at 13:57 Admitting Diagnosis PNA, sepsis HPI Chloe Rojas is a 81 year old female who was admitted on Dec 20, 2016 at 21: 22 for Pneumonia,Fever Hospital Course [id number] Discharge Discharge Disposition Patient was discharged to SNF/Subacute Facility(03) Discharge Diagnoses: Chelsey Cantu NP Dec 28, 2016 13:56
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
== END 2016-12-27 13:57 | DRG 871 ==
LOC: EDBD 18:44 → EMR 19:49 → 2E 21:22 → EDBEDREQ 12-21 05:25 → 4W 12-21 20:13
DX: A41.9 Sepsis, unspecified organism (principal); J69.0 Pneumonitis due to inhalation of food and vomit; N39.0 Urinary tract infection, site not specified; G30.9 Alzheimer's disease, unspecified; F02.80 Dementia in other diseases classified elsewhere, unspecified severity, without behavioral disturbance, psychotic disturbance, mood disturbance, and anxiety; K21.9 Gastro-esophageal reflux disease without esophagitis; I10 Essential (primary) hypertension; Z86.73 Personal history of transient ischemic attack (TIA), and cerebral infarction without residual deficits; S31.502A Unspecified open wound of unspecified external genital organs, female, initial encounter; X58.XXXA Exposure to other specified factors, initial encounter; R13.12 Dysphagia, oropharyngeal phase; Z66 Do not resuscitate
CPT/HCPCS: 36415; 71010; 80048; 80053; 80069; 80202; 81003; 82550; 82553; 83605; 84484; 85025; 85610; 87040; 87081; 93005; 94664; 94760